=== PATIENT | female | born 1990 | race Caucasian/White ===

== ENCOUNTER → 2018-01-19 13:34 | Outpatient (CLI) | payer OTHER, SELFPAY | PROVIDERS: Family Provider Family Medicine; PCP Family Medicine; Visit Provider Obstetrics & Gynecology | DX: R25.2 Cramp and spasm (principal) | CPT/HCPCS: 87086; 87088 ==

== ENCOUNTER → 2018-02-17 11:11 | Outpatient (CLI) | payer OTHER, SELFPAY ==
[2018-02-17 15:31] LABS: Chlamydia Trachomatis by PCR Negative (Negative); Neisserai gonorrhoeae by PCR Negative (Negative); Probe Check PASS; Sample Adequacy Control PASS; Specimen Processing Control PASS
== END ==
PROVIDERS: Visit Provider Obstetrics & Gynecology
DX: Z11.3 Encounter for screening for infections with a predominantly sexual mode of transmission (principal)
CPT/HCPCS: 87491; 87591

== ENCOUNTER → 2018-02-22 09:40 | Outpatient (CLI) | payer OTHER, SELFPAY ==
[2018-02-22 10:37] LABS: Absolute Lymphocyte Count 1.56 X10^3/ul (0.83-4.51); Absolute Neutrophil Count 3.2 X10^3/uL (2.0-7.7); Basophil# 0.01 X10^3/uL; Basophil% 0.2 % (0-1); Eosinophil# 0.05 X10^3/uL; Hematocrit 39.5 % (37-47); Hemoglobin 13.2 g/dl (12.0-15.0); Lymphocyte # 1.56 X10^3/ul (4.0); Mean Corp Hgb Conc 33.4 g/gl (32-36); Mean Corpuscular Hgb 28.1 pg (27.0-32.0); Mean Corpuscular Volume 84.2 fL (81-99); Mean Platelet Vol. 10.5 fl (6.2-12.0); Monocyte# 0.39 X10^3/uL; Monocyte% 7.5 % (0-10); Neutrophil # 3.19 X10^3/uL (2.7-7.7); Neutrophil % 61.3 % (47-70); Platelet Count 261 K/mm3 (150-450); RBC Distribution Width CV 13.9 % (11.6-14.6); RBC Distribution Width SD 42.7 fl (35.1-43.9); Red Blood Count 4.69 M/mm3 (4.2-5.4); White Blood Count 5.2 K/mm3 (4.4-11.0)
[2018-02-22 10:40] LABS: Color, Urine Yellow (Yellow); Glucose, Dipstick Normal (Normal); Ketone-Dipstick 15 mg/dl (Negative); Leukocyte Esterase-Dipstick 100 /ul (Negative); Nitrite-Dipstick Negative (Negative); Occult Blood-Urine 10 /ul (Negative); Protein-Dipstick Negative (Negative); Specific Gravity, Urine 1.015 (1.002-1.030); Urine Bilirubin Dipstick Negative (Negative); Urine Clarity Clear (Clear); Urine Urobilinogen Normal (Normal); Urine pH 6.5 (5.0 - 8.0)
[2018-02-22 10:44] LABS: POSITIVE COUNT NO; POSITIVE DIFFERENTIAL NO; POSITIVE MORPHOLOGY NO
[2018-02-22 10:54] LABS: COTININE Drug Screen Negative (<200 ng/mL)
[2018-02-22 11:01] LABS: Thyroid Stim Hormone (TSH) 1.25 uIU/mL (0.358-3.74)
[2018-02-22 11:12] LABS: Amphetamine Urine VISTA NEGATIVE (<1000 ng/mL); Barbiturate Urine VISTA NEGATIVE (< 200 ng/mL); Benzodiazepine Urine VISTA NEGATIVE (< 200 ng/mL); Cocaine Urine VISTA NEGATIVE (< 300 ng/mL); Ecstacy Urine VISTA NEGATIVE (< 500 ng/mL); Methadone Urine VISTA NEGATIVE (< 300 ng/mL); PCP Urine VISTA NEGATIVE (< 25 ng/mL); THC Urine VISTA NEGATIVE (< 50 ng/mL); Vista UDS pH Range 7
[2018-02-22 11:38] LABS: HIV - WCH Non-Reactive (Nonreactive)
[2018-02-23 10:06] LABS: HEPATITIS B SURFACE AG Negative (Negative); Hep C Antibodies <0.1 s/co ratio (0.0-0.9)
[2018-02-24 01:05] LABS: Prenatal RPR NONREACTIVE (NONREACTIVE)
== END ==
PROVIDERS: Visit Provider Obstetrics & Gynecology
DX: Z34.81 Encounter for supervision of other normal pregnancy, first trimester (principal)
CPT/HCPCS: 36415; 80307; 81002; 84443; 85025; 86703; 86762; 86803; 87340

== ENCOUNTER → 2018-07-14 10:17 | Outpatient (CLI) | payer OTHER, SELFPAY ==
[2018-07-14 13:44] LABS: Hematocrit 32.5 % (37-47); Hemoglobin 10.7 g/dl (12.0-15.0); Mean Corp Hgb Conc 32.9 g/gl (32-36); Mean Corpuscular Hgb 28.7 pg (27.0-32.0); Mean Corpuscular Volume 87.1 fL (81-99); Mean Platelet Vol. 10.7 fl (6.2-12.0); Platelet Count 243 K/mm3 (150-450); RBC Distribution Width CV 13.8 % (11.6-14.6); Red Blood Count 3.73 M/mm3 (4.2-5.4); White Blood Count 8.2 K/mm3 (4.4-11.0)
[2018-07-14 13:45] LABS: Scan Indicated on CBC? Y/N NO
[2018-07-14 14:00] LABS: Glucose Challenge Gest 1H 50g 176 mg/dL (70-140)
== END ==
PROVIDERS: Visit Provider Obstetrics & Gynecology
DX: Z34.83 Encounter for supervision of other normal pregnancy, third trimester (principal)
CPT/HCPCS: 36415; 82950; 85027

== ENCOUNTER → 2018-07-24 06:45 | Outpatient (CLI) | payer OTHER, SELFPAY ==
[2018-07-24 07:38] LABS: Glucose GTT-Gestation. Fasting 82 mg/dL (<105)
[2018-07-24 08:39] LABS: Glucose GTT-Gestational 1 Hr 182 mg/dL (<190)
[2018-07-24 09:52] LABS: Glucose GTT-Gestational 2 Hr 167 mg/dL (<165)
[2018-07-24 11:09] LABS: Glucose GTT-Gestational 3 Hr 72 L (<145)
== END ==
PROVIDERS: Family Provider Family Medicine; PCP Family Medicine; Referring Provider Obstetrics & Gynecology; Visit Provider Obstetrics & Gynecology
DX: O24.912 Unspecified diabetes mellitus in pregnancy, second trimester (principal); Z3A.00 Weeks of gestation of pregnancy not specified
CPT/HCPCS: 36415; 82951; 82952

== ENCOUNTER → 2018-09-08 15:03 | Outpatient (CLI) | payer OTHER, SELFPAY | PROVIDERS: Visit Provider Obstetrics & Gynecology | DX: Z36.85 Encounter for antenatal screening for Streptococcus B (principal) | CPT/HCPCS: 87081 ==

== ENCOUNTER 2018-09-17 10:35 | Outpatient (CLI) | payer OTHER, SELFPAY ==
[2018-09-17 10:56] VITALS: BMI 38.8
--- NOTE | 2018-09-19 08:39 | OB.TRI.NOTE ---
History of Present Illness Date of Service: 09/17/18 Was patient seen by the physician?: No Reason For Visit: Decreased movement. Date of Service: 09/17/18 Final RYAN: 10/09/18 Final RYAN Source: US <20 weeks Gestational age: 36 Weeks and 6 Days Allergies No Known Allergies Allergy (Verified 11/01/17 08:10) NST - FHR Rate Baby A Baseline: 130-140 with avg variability accels to 160s. no decels. Variability:: Moderate Accelerations:: 15 x 15 Decelerations:: None NST Reactive:: Yes, Appropriate for gestational age FHR Category:: Category I Uterine Activity:: UCs q 2-8 min with invervals of irritability Impression/Plan 36 6/7 wk EGA with Decreased movement Reactive NST Home. Keep next appt as scheduled in office.
== END 2018-09-17 11:20 | disposition home or self-care (01) ==
LOC: WPOUT 10:53 → WP 09-18 12:57
PROVIDERS: Visit Provider Obstetrics & Gynecology
DX: O36.8130 Decreased fetal movements, third trimester, not applicable or unspecified (principal); Z3A.36 36 weeks gestation of pregnancy
CPT/HCPCS: 59025; 59050; 99218; G0378

== ENCOUNTER 2018-09-22 09:15 | Outpatient (RCR) | payer OTHER, SELFPAY ==
--- NOTE | 2018-07-21 11:43 | MASS.EVAL ---
Massage Therapy Evaluation: Initial Evaluation Date: 07/14/2018 SUBJECTIVE: Cassandra is a 28 year old female who was referred to the [facility] facility for a massotherapy evaluation by Dr. Ricardo with the diagnosis of back pain. Cassandra presents today with the symptoms of tension and pain in her mid-low back. She also reports she is 27 weeks . She reports having the increased low back symptoms for a few weeks and that he feels some improvement with stretching activity modification. OBJECTIVE: Upon observation Cassandra has poor posture in sitting and standing. After examination and palpation I found her to have very high muscle tension with tenderness and myofascial restrictions in her sub occipitals, levator scapulae, trapezius, rhomboids, scalenes, and thoracic paraspinals. Her QL?s, hips including glute medius and minimus, hamstrings all were very tight with fascial restrictions, tender points and trigger points. The first treatment consisted of a one hour massage to her full body with myofascial release, muscle stripping, trigger point compression techniques, and cervical manual traction. ASSESSMENT: I feel that Cassandra is a good candidate for massotherapy at this time. She had a favorable response to the first treatment with reduction in her muscle aches, pain and tension. She also had improvement in her cervical flexibility and low back flexibility. PLAN: The plan of care was reviewed with the patient. The patient is to be seen on as needed basis for a total of ten sessions with the recommendation of once every two weeks for a one hour treatment. Tonia Campa LMT
--- NOTE | 2018-10-10 13:37 | MASS.DISCH ---
Massage Therapy Discharge Summary: Discharge Date: 10/10/2018 Cassandra was seen for a massotherapy evaluation on 07/14/2018 with the diagnosis of back pain with . She was treated with four sessions of massage therapy consisting of moderate pressure soft tissue techniques, myofascial release and trigger point compression to her cervical, thoracic, lower back, upper extremities and hips. Cassandra responded well to the therapy by reporting decreased tension and pain throughout her neck, shoulders, lower back and hips. Her goals for therapy were met as she reported massage helped her greatly with her . At this time this patient is being discharged from our care at [facility] facility.
== END 2018-09-22 19:00 | disposition home or self-care (01) ==
LOC: MASS 09:15
PROVIDERS: Family Provider Family Medicine; PCP Family Medicine; Visit Provider Obstetrics & Gynecology
DX: M54.5 Low back pain (principal)
CPT/HCPCS: 97124

== ENCOUNTER 2018-10-09 11:50 | Outpatient (CLI) | payer OTHER, SELFPAY ==
[2018-10-09 12:45] VITALS: BMI 39.4
--- NOTE | 2018-10-10 20:43 | OB.TRI.NOTE ---
History of Present Illness Date of Service: 10/09/18 Was patient seen by the physician?: Yes Reason For Visit: FALL Date of Service: 10/09/18 Final RYAN: 10/09/18 Final RYAN Source: US <20 weeks Gestational age: 40 Weeks and 0 Days History of Present Illness: 40-week intrauterine who fell at home. She notes that she fell on her buttocks but did not hit her abdomen. Denies any contractions but some are noted on the monitor that are mild. Maternal blood type is Rh+. Allergies No Known Allergies Allergy (Verified 11/01/17 08:10) NST - FHR Rate Baby A NST Reactive:: Yes FHR Category:: Category I Impression/Plan 40-week intrauterine status post fall at home. Minor fall. Monitored for 4 hours and no decelerations noted no bleeding. Reactive nonstress test. Released to home with routine instructions. To use Tylenol as needed for any musculoskeletal discomfort. Return if contractions increase in frequency or intensity or with decreased movement or vaginal bleeding.
--- OUTSIDE RECORDS SUMMARY | 2019-01-11 02:07 | XMS RPT_ITS ---
:1990 Author Organization [place] Support Name Relationship Address Phone [facility] Unavailable [address] + [place] [address] DENISE COLLINSER Unavailable [address] + [address] Unavailable [address] + [place] [address] DENISE COLLINSER Unavailable [address] + [address] Unavailable [address] + [place] [address] DENISE COLLINSER Unavailable [address] + [address] Unavailable [address] + [place] [address] KARINA ERIC Unavailable [address] + [address] Unavailable [address] + [place] [address] KARINA ERIC Unavailable [address] + [address] Unavailable [address] + [place] [address] DENISE COLLINSER Unavailable [address] + [address] Unavailable [address] + [place] [address] KARINA ERIC Unavailable [address] + [address] Unavailable [address] + [place] [address] KARINA ERIC Unavailable [address] + [address] Unavailable [address] + [place] [address] DENISE COLLINSER Unavailable [address] + [address] Unavailable [address] + [place] [address] DENISE COLLINSER Unavailable [address] + [address] Unavailable [address] + [place] [address] DENISE COLLINSER Unavailable [address] + [address] Unavailable [address] + [place] [address] DENISE COLLINSER Unavailable [address] + [address] Unavailable [address] + [place] [address] DENISE COLLINSER Unavailable [address] + [place] [address] Care Team Providers Name Role Phone Rm Baxter Attending Unavailable Rm Baxter Referring Unavailable Primay Care Physicia, No Primary Care Unavailable Seals, Néstor Admitting Unavailable Seals, Néstor Attending Unavailable Seals, Néstor Referring Unavailable Primay Care Physicia, No Primary Care Unavailable Seals, Néstor Attending Unavailable Seals, Néstor Attending Unavailable Seals, Néstor Referring Unavailable Waldron, Michael Primary Care Unavailable Seals, Néstor Attending Unavailable Benekos, Nina Attending Unavailable Seals, Néstor Attending Unavailable Waldron, Michael Primary Care Unavailable Seals, Néstor Attending Unavailable Seals, Néstor Attending Unavailable Waldron, Michael Primary Care Unavailable Benekos, Nina Attending Unavailable Seals, Néstor Attending Unavailable Waldron, Michael Primary Care Unavailable Seals, Néstor Referring Unavailable ASSESSMENT, HEALTH RISK Attending Unavailable ASSESSMENT, HEALTH RISK Referring Unavailable Waldron, Michael Primary Care Unavailable Waldron, Michael Primary Care Unavailable Referred, Self Attending Unavailable PROBLEMS PROBLEMS DATE TYPE CONDITION / CODE ATTENDING STATUS SOURCE 10/18/2018 Unknown M54.5 - Low back SealNéstor bhakta pain / Community M54.5(ICD-10) Hospital Repository 09/08/2018 Unknown Z36.85 - Encounter SealsNéstor for Community screening for Hospital Streptococcus B / Repository Z36.85(ICD-10) 07/14/2018 Unknown Z34.83 - Encounter Nina Ferrari Active [place] for supervision of Community other normal Hospital , third Repository trimester / Z34.83(ICD-10) 02/22/2018 Unknown Z34.81 - Encounter Néstor Ricardo Active [place] for supervision of Community other normal Hospital , first Repository trimester / Z34.81(ICD-10) 02/17/2018 Unknown Z11.3 - Encounter Néstor Ricardo Active [place] for screening for Community infections with a Hospital predominantly Repository sexual mode of transmission / Z11.3(ICD-10) PROCEDURES PROCEDURES No Procedure Records FoundRESULTS RESULTS DISCHARGE INSTRUCTION Observed: 10/19/2018 Status: F Source: [place] 7:19 PM [facility] REPOSITORY [facility] Medical Records Department [address] [place] [address] Instructions for Home/Discharge Instructions 10/19/18 1918 MR#: [id number] Acct: [id number] Name: CASSANDRA COLLINS Rep #: [id number] : 1990 28 From: Rm Baxter MD PCP: Care Physician, No Primary Status: ADM IN Discharge Diet: No Restrictions Discharge Activity: May Shower, May Take a Tub Bath May resume sexual activity in: 4-6 weeks Additional Activity Instructions:: Nothing in the vagina for 4-6 weeks. You may return to work/school in 6 weeks. Call your doctor if you observe: Fever of 101 or Higher, Inability to urinate, Inability to have a bowel movement, Using more than one pad per hour Additional Instructions: If you experience any of the following, contact your healthcare provider. * Bleeding that soaks a pad every hour for 2 hours * Unrelieved incision or abdominal pain * Swelling, redness, discharge or bleeding from your incision or episiotomy site * Your incision begins to separate * Problems urinating (including inability to urinate or burning while urinating). * Visual changes * Severe headache * Flu-like symptoms * Pain or redness in one of both of your breasts * Pain, warmth, tenderness or swelling in your legs, especially the calf area * Frequent nausea and vomiting * Symptoms of depression or anxiety If you experience any of the following, call 911 or go to the nearest Emergency Room. * Chest pain * Problems breathing * Seizure activity * Partial or complete paralysis of a body part, slurred speech, weakness or drooping of the face, or a sudden inability to walk or hold your balance Allergies/Adverse Reactions: Allergies No Known Allergies Allergy (Verified 11/01/17 08:10) Medications to take at Discharge No122/Iron/Folic Acid [ Multi Tablet] 1 each PO DAILY 11/01/17 Pantoprazole Sodium [Protonix] 40 mg PO DAILY 09/17/18 Please Follow Up With: Rm Baxter MD - [phone] When: Call to make an appointment with your doctor in 6 weeks. Primary Care Physician: Care Physician,No Primary [Primary Care Provider] - Test Results: Test results from this visit will be discussed in further detail at your follow-up appointment, if applicable. 10/19/181918 <Electronically signed by Rm Baxter MD> Date Rm Baxter MD CC: No Primary Care Physician Signed OPERATIVE REPORT Observed: 10/19/2018 Status: F Source: [place] 7:18 PM [facility] Medical Records Department [address] [place] [address] Operative Report 10/19/181914 MR#: [id number] Acct: [id number] Name: CASSANDRA COLLINS Rep #: [id number] : 1990 From: Rm Baxter MD PCP: Care Physician, No Primary Status: ADM IN Location: [place] [address] Vaginal Delivery Maternal Presentation: Medically Indicated Induction Method of Induction: Pitocin, Amniotomy Medical Reason for Induction: Post term Amniotic Membrane Rupture Type: Spontaneous Amniotic Fluid Description: Lightly stained meconium Final RYAN: 10/09/18 Final RYAN Source: US <20 weeks Gestational age: 41 Weeks and 3 Days doctor who attended delivery (if requested by OB): Hien Loya Date of Procedure: 10/19/18 Pre-Operative Diagnosis: IUP, Postdatism Post-Operative Diagnosis: IUP, Postdatism Surgery/ Procedure Performed: Spontaneous Vaginal Delivery, Vacuum Assisted Vaginal Delivery Type of Anesthesia: Epidural Description of Procedure: Spontaneous vaginal delivery of a viable female infant with Apgars of 8/9 from an occiput anterior presentation with lightly stained meconium amniotic fluid and normal three-vessel placenta. First-degree midline episiotomy extended to a second- degree midline laceration repaired in layers with 3-0 repeat suture under epidural. Sponge counts okay. Kiwi vacuum used x3 gentle pulls from low outlet to expedite delivery of the head after nearly 3 hours of pushing and increasing maternal fatigue. Delivery physician: Rm Baxter MD. Presentation: Vertex Placental Delivery Description: Spontaneous Placenta Disposition: [facility] Cord Vessel Description: 3 Vessels Cord Gases drawn per routine: ABG Cord Entanglement: None Estimated Blood Loss: 250 cc A gender: Female (1 minute): 8 (5 minute): 9 Episiotomy Description: Midline, 1st degree Laceration: Midline, Perineal Extension/lac, 2nd degree Medications given after delivery: IV Pitocin, IM Methergin Complications: None 10/19/181917 <Electronically signed by Rm Baxter MD> Date Rm Baxter MD CC: No Primary Care Physician; Néstor Ricardo MD; Rm Baxter MD Signed CBC-COMPLETE BLOOD CNT Collected: 10/19/2018 Status: F Source: [place] NO DIFF 7:40 AM [facility] REPOSITORY TYPE CODE TESTS RESULT OUT OF RANGE REFERENCE UNITS LAB L100.1000 4.4-11.0 K/mm3 Normal WBC 9.2 LAB L100.1200 4.2-5.4 M/mm3 Low RBC 4.05 LAB L100.1300 12.0-15.0 g/dl Low HGB 10.5 LAB L100.1400 37-47 % Low HCT 32.6 LAB L100.1500 81-99 fL Low MCV 80.5 LAB L100.1600 27.0-32.0 pg Low MCH 25.9 LAB L100.1700 32-36 g/gl Normal MCHC 32.2 LAB L100.1810 11.6-14.6 % High RDW CV 15.1 LAB L100.1820 35.1-43.9 fl High RDW SD 44.4 LAB L100.1900 150-450 K/mm3 Normal PLT 262 LAB L100.2000 6.2-12.0 fl Normal MPV 10.7 Performed By: #### L100.0500 #### [facility] [address] [place], [address] TYPE AND SCREEN Collected: 10/19/2018 Status: F Source: [place] 7:40 AM [facility] REPOSITORY Order Comment: Reason for Type AND Screen/Red Cells: ROUTINE TYPE CODE TESTS RESULT OUT OF RANGE REFERENCE UNITS LAB B10.0800 A Normal BLOOD TYPE GEL POSITIVE LAB B100.4000 Normal Antibody NEGATIVE Screen Performed By: #### B101.7450 #### [facility] [address] [facility] [place], [address] DISCHARGE SUMMARY Observed: 10/13/2018 Status: F Source: [place] 3:43 PM [facility] REPOSITORY [facility] Medical Records Department [address] [place] [address] Discharge Summary 10/10/18 1337 MR#: [id number] Acct: [id number] Name: CASSANDRA COLLINS Rep #: [id number] : 1990 28 From: Tonia Campa PCP: Liam Waldron MD Status: REG RCR Y Location: [facility] Massage Therapy Discharge Summary: Discharge Date: 10/10/2018 Cassandra was seen for a massotherapy evaluation on 07/14/2018 with the diagnosis of back pain with . She was treated with four sessions of massage therapy consisting of moderate pressure soft tissue techniques, myofascial release and trigger point compression to her cervical, thoracic, lower back, upper extremities and hips. Cassandra responded well to the therapy by reporting decreased tension and pain throughout her neck, shoulders, lower back and hips. Her goals for therapy were met as she reported massage helped her greatly with her . At this time this patient is being discharged from our care at [facility] facility. 10/13/18 1543 <Electronically signed by Tonia Campa > Date Tonia Campa Cosigner Signature (if applicable): Date CC: Tonia Campa; Liam Waldron MD Signed Observed: 09/08/2018 Status: F Source: [place] CULTURE, GROUP B 8:45 AM [facility] STREPTOCOCCUS REPOSITORY Comments: VAGINAL/RECTAL KISHAN Culture Group B Beta Streptococcus is not isolated. Performed By: #### M100.1800 #### [facility] [address] [facility] [place], [address] GESTATIONAL GTT 3HR Collected: 07/24/2018 Status: F Source: [place] 100G 6:52 AM [facility] REPOSITORY Order Comment: Is Patient Fasting? Y TYPE CODE TESTS RESULT OUT OF RANGE REFERENCE UNITS LAB L501.0650 <105 mg/dL Normal GLU 82 GTT-FASTING Result Comment: GLUCOSE TOLERANCE TEST FOR Reference Interval GESTATIONAL DIABETES Fasting <105 mg/dL 1 hour <190 mg/dl 2 hour <165 mg/dl 3 hour <145 mg/dl LAB L501.0660 <190 mg/dL Normal GLU GTT- 1HR 182 LAB L501.0670 <165 mg/dL High GLU GTT- 2HR 167 LAB L501.0680 <145 L Normal GLU GTT- 3HR 72 Performed By: #### L500.4710 #### [facility] [address] [place], [place], [address] MASSAGE THERAPY Observed: 07/21/2018 Status: F Source: [place] EVALUATION 11:51 AM [facility] REPOSITORY [facility] [address] [place] [address] Fax REHABILITATION SERVICES INITIAL EVALUATION MR#: [id number] Acct: [id number] Name: CASSANDRA COLLINS Rep #: [id number] : 1990 28 From: Tonia Campa Referring Dr.: Néstor Ricardo MD Status: REG RCR Insurance: [facility] SELF PAY INSURANCE Massage Therapy Evaluation: Initial Evaluation Date: 07/14/2018 SUBJECTIVE: Cassandra is a 28 year old female who was referred to the [facility] facility for a massotherapy evaluation by Dr. Ricardo with the diagnosis of back pain. Cassandra presents today with the symptoms of tension and pain in her mid-low back. She also reports she is 27 weeks . She reports having the increased low back symptoms for a few weeks and that he feels some improvement with stretching activity modification. OBJECTIVE: Upon observation Cassandra has poor posture in sitting and standing. After examination and palpation I found her to have very high muscle tension with tenderness and myofascial restrictions in her sub occipitals, levator scapulae, trapezius, rhomboids, scalenes, and thoracic paraspinals. Her QL s, hips including glute medius and minimus, hamstrings all were very tight with fascial restrictions, tender points and trigger points. The first treatment consisted of a one hour massage to her full body with myofascial release, muscle stripping, trigger point compression techniques, and cervical manual traction. ASSESSMENT: I feel that Cassandra is a good candidate for massotherapy at this time. She had a favorable response to the first treatment with reduction in her muscle aches, pain and tension. She also had improvement in her cervical flexibility and low back flexibility. PLAN: The plan of care was reviewed with the patient. The patient is to be seen on as needed basis for a total of ten sessions with the recommendation of once every two weeks for a one hour treatment. Tonia Campa LMT <Electronically signed by Tonia Campa > 07/21/18 1151 CC: Liam Waldron MD; Néstor Ricardo MD REEMA Signed For Medicare only, by signing this I certify the plan of care. Physicians Signature Date CBC-COMPLETE BLOOD CNT Collected: 07/14/2018 Status: F Source: [place] NO DIFF 10:15 AM [facility] REPOSITORY TYPE CODE TESTS RESULT OUT OF RANGE REFERENCE UNITS LAB L100.1000 4.4-11.0 K/mm3 Normal WBC 8.2 LAB L100.1200 4.2-5.4 M/mm3 Low RBC 3.73 LAB L100.1300 12.0-15.0 g/dl Low HGB 10.7 LAB L100.1400 37-47 % Low HCT 32.5 LAB L100.1500 81-99 fL Normal MCV 87.1 LAB L100.1600 27.0-32.0 pg Normal MCH 28.7 LAB L100.1700 32-36 g/gl Normal MCHC 32.9 LAB L100.1810 11.6-14.6 % Normal RDW CV 13.8 LAB L100.1820 35.1-43.9 fl High RDW SD 44.0 LAB L100.1900 150-450 K/mm3 Normal PLT 243 LAB L100.2000 6.2-12.0 fl Normal MPV 10.7 Performed By: #### L100.0500 #### [facility] [address] [place], [address] GLUCOSE CHALLENGE GEST Collected: 07/14/2018 Status: F Source: [place] 1H 50G 10:15 AM [facility] REPOSITORY TYPE CODE TESTS RESULT OUT OF RANGE REFERENCE UNITS LAB L501.0250 70-140 mg/dL High GLU GEST 176 50g 1H Performed By: #### L501.0250 #### [facility] [address] [place], [address] CBC, EMPLOYEE Collected: 04/12/2018 Status: F Source: [place] 6:32 AM [facility] REPOSITORY TYPE CODE TESTS RESULT OUT OF RANGE REFERENCE UNITS LAB L100.1000 4.4-11.0 K/mm3 Normal WBC 6.3 LAB L100.1200 4.2-5.4 M/mm3 Normal RBC 4.40 LAB L100.1300 12.0-15.0 g/dl Normal HGB 12.7 LAB L100.1400 37-47 % Low HCT 36.5 LAB L100.1500 81-99 fL Normal MCV 83.0 LAB L100.1600 27.0-32.0 pg Normal MCH 28.9 LAB L100.1700 32-36 g/gl Normal MCHC 34.8 LAB L100.1810 11.6-14.6 % Normal RDW CV 14.1 LAB L100.1820 35.1-43.9 fl Normal RDW SD 42.9 LAB L100.1900 150-450 K/mm3 Normal PLT 248 LAB L100.2000 6.2-12.0 fl Normal MPV 10.5 LAB L100.2110 47-70 % Normal NEUT% 66.7 LAB L100.2210 19-41 % Normal LY% 22.6 LAB L100.2310 0-10 % Normal MONO% 8.8 LAB L100.2410 0-5 % Normal EO% 1.7 LAB L100.2510 0-1 % Normal BASO% 0.0 LAB L100.2620 2.0-7.7 X10 3/uL Normal Absolute Neut 4.2 LAB L100.2720 0.83-4.51 X10 3/ul Normal Absolute Lymph 1.43 Performed By: #### L100.0200 #### [facility] [address] [place] [address]. [place], [address] URINALYSIS, EMPLOYEE Collected: 04/12/2018 Status: F Source: [place] 6:32 AM [facility] REPOSITORY TYPE CODE TESTS RESULT OUT OF RANGE REFERENCE UNITS LAB L400.3000 Yellow COLOR Normal Yellow LAB L400.3050 Clear Normal CLARITY Sl. Cloudy LAB L400.3200 Normal mg/dl Normal GLUCOSE, UR Normal LAB L400.3300 Negative mg/dL Normal BILIRUBIN URINE Negative LAB L400.3400 Negative mg/dl Normal KETONE UR Negative LAB L400.3465 1.002-1.030 Normal SP.GR. DIPSTX 1.015 LAB L400.3550 5.0 - 8.0 pH UR Normal 6.5 LAB L400.3600 Negative mg/dl PROT Normal DIPSTX Negative LAB L400.3700 Normal mg/dl Normal UROBILI Normal LAB L400.3750 Negative Normal NITRITE UR Negative LAB L400.3780 Negative /ul Normal OCCULT BLOOD-UR Negative LAB L400.3800 Negative /ul High LEUK ESTERASE 500 Performed By: #### L400.0100 #### [facility] [address] [place], [address] NICOTINE URINE DRUG Collected: 04/12/2018 Status: F Source: [place] SCREEN 6:32 AM [facility] REPOSITORY TYPE CODE TESTS RESULT OUT OF RANGE REFERENCE UNITS LAB L505.6250 TO BE Normal CONFIRMED Result Comment: CONFIRMATORY TESTING FOR ALL POSITIVE URINE DRUG SCREEN RESULTS WILL ONLY BE SENT OUT UPON PHYSICIAN ORDER. The results of Urine Drug Screen methods provide only preliminary analytical test results. A more specific alternate chemical method must be used in order to obtain a confirmed analytical result. Gas chromatography/mass spectrometery (GC/MS) is the preferred confirmatory method. Clinical consideration and professional judgement should be applied to any drug of abuse test result, particularly when preliminary positive results are used. LAB L505.6270 <200 ng/mL Normal COT DRG Negative SCREEN Result Comment: Cotinine is the first-stage metabolite of Nicotine. Performed By: #### L505.6240 #### [facility] [address] [place], [address] EMPLOYEE PROFILE Collected: 04/12/2018 Status: F Source: [place] 6:32 AM [facility] REPOSITORY TYPE CODE TESTS RESULT OUT OF RANGE REFERENCE UNITS LAB L501.0100 74-106 mg/dL Normal GLU 84 Result Comment: Please note revised GLUCOSE reference range effective 2017. LAB L501.1000 7-18 mg/dL Normal BUN 9 LAB L501.1100 0.55-1.02 mg/dL Low CREAT,SERUM 0.48 Result Comment: The validity of the calculated GFR AND GFRAA in patients over 70 years has not been determined. Clinical correlation is essential. LAB L501.1110 >60 mL/min Normal EST GFR 165 Result Comment: Non- GFR Calc LAB L501.1115 >60 mL/min Normal EST GFR - AA 200 Result Comment: GFR Calc LAB L501.1300 10-20 RATIO Normal BUN/CRE 18.7 LAB L501.1400 2.6-6.0 mg/dL Normal URIC 2.8 Result Comment: The drugs N-Acetylcysteine and Metamizole may falsely depress this assay. LAB L501.1500 6.4-8.2 g/dL Normal T PROT 7.1 LAB L501.1800 3.2-5.0 g/dL Normal ALB 3.2 LAB L501.1950 2.2-4.2 g/dL Normal GLOB 3.9 LAB L501.2000 0.9-2.4 RATIO Low A/G 0.8 LAB L501.2200 8.5-10.1 mg/dL Normal CA 8.6 LAB L501.2300 2.5-4.9 mg/dL Normal PHOS 4.0 LAB L501.4100 15-37 U/L Normal AST 15 LAB L501.4305 45-117 U/L Normal ALK P 50 LAB L501.4405 13-56 U/L Normal ALT 31 LAB L501.4600 0.20-1.00 mg/dL Normal T BILI 0.40 LAB L501.4700 0.00-0.30 mg/dL Normal D BILI 0.08 LAB L501.4900 200 mg/dL Normal CHOL 165 Result Comment: <200 mg/dL Desirable 200-240 mg/dL Borderline >240 mg/dL High Risk LAB L501.5000 mg/dL Normal TRIG 67 Result Comment: The drugs N-Acetylcysteine and Metamizole may falsely depress this assay. Serum Triglycerides Reference Interval Normal <150 mg/dL Borderline high 150 - 199 mg/dL High 200 - 499 mg/dL Very High > or = 500 mg/dL LAB L501.5300 136-145 mmol/L Normal NA 141 LAB L501.5600 3.5-5.1 mmol/L Normal K 3.6 LAB L501.5900 98-107 mmol/L High CL 108 LAB L501.6100 21.0-32.0 mmol/L Normal CO2 21.0 LAB L501.6200 5-15 Normal GAP 12 LAB L501.6400 mg/dL Normal HDL 57 Result Comment: The drugs N-Acetylcysteine and Metamizole may falsely depress this assay. Reference Range HDL <40 mg/dL Low HDL Cholesterol HDL >or= 60 mg/dL High HDL Cholesterol LAB L501.6475 Normal CHOL:HDL 2.90 LAB L501.6500 0-130 mg/dL Normal LDL 95 LAB L501.6600 5-40 mg/dL Normal VLDL 13 LAB L504.2610 84-246 U/L Normal LDH 196 Performed By: #### L500.2900 #### [facility] [address] [place], [place], [address] URINE DRUG SCREEN Collected: 02/22/2018 Status: F Source: [place] WEAVER) 9:42 AM [facility] REPOSITORY Order Comment: List of Drugs Taken or Suspected? UNK TYPE CODE TESTS RESULT OUT OF RANGE REFERENCE UNITS LAB L505.0075 TO BE Normal CONFIRMED Result Comment: CONFIRMATORY TESTING FOR ALL POSITIVE URINE DRUG SCREEN RESULTS WILL ONLY BE SENT OUT UPON PHYSICIAN ORDER. VISTA Urine Drug Screen methods provide only preliminary analytical test results. A more specific alternate chemical method must be used in order to obtain a confirmed analytical result. Gas chromatography/mass spectrometery (GC/MS) is the preferred confirmatory method. Clinical consideration and professional judgement should be applied to any drug of abuse test result, particularly when preliminary positive results are used. URINE TCA TESTING MUST BE ORDERED SEPARATELY. USE TEST MNEMONIC: [facility] LAB L505.5005 VISTA UDS PH 7 Normal LAB L505.5015 <1000 ng/mL AMPHETAMINES Normal NEGATIVE LAB L505.5025 < 200 ng/mL BARBITIURATES Normal NEGATIVE LAB L505.5035 < 200 ng/mL BENZODIAZIPINE Normal NEGATIVE LAB L505.5045 < 300 ng/mL COCAINE Normal NEGATIVE LAB L505.5055 < 500 ng/mL ECSTACY Normal NEGATIVE LAB L505.5065 < 300 ng/mL METHADONE Normal NEGATIVE LAB L505.5075 < 300 ng/mL OPIATES Normal NEGATIVE LAB L505.5085 < 25 ng/mL PCP Normal NEGATIVE LAB L505.5095 < 50 ng/mL THC Normal NEGATIVE Performed By: #### L505.5000, L505.6240 #### [facility] [address] [place], [address] NICOTINE URINE DRUG Collected: 02/22/2018 Status: F Source: [place] SCREEN 9:42 AM [facility] REPOSITORY Order Comment: List of Drugs Taken or Suspected? UNK TYPE CODE TESTS RESULT OUT OF RANGE REFERENCE UNITS LAB L505.6250 TO BE Normal CONFIRMED Result Comment: CONFIRMATORY TESTING FOR ALL POSITIVE URINE DRUG SCREEN RESULTS WILL ONLY BE SENT OUT UPON PHYSICIAN ORDER. The results of Urine Drug Screen methods provide only preliminary analytical test results. A more specific alternate chemical method must be used in order to obtain a confirmed analytical result. Gas chromatography/mass spectrometery (GC/MS) is the preferred confirmatory method. Clinical consideration and professional judgement should be applied to any drug of abuse test result, particularly when preliminary positive results are used. LAB L505.6270 <200 ng/mL Normal COT DRG Negative SCREEN Result Comment: Cotinine is the first-stage metabolite of Nicotine. Performed By: #### L505.5000, L505.6240 #### [facility] [address] [facility] [place], [address] URINALYSIS, ROUTINE Collected: 02/22/2018 Status: F Source: [place] (DIPSTICK) 9:42 AM [facility] REPOSITORY Order Comment: How was Urine Obtained? Urine, Random TYPE CODE TESTS RESULT OUT OF RANGE REFERENCE UNITS LAB L400.3000 Yellow COLOR Normal Yellow LAB L400.3050 Clear Normal CLARITY Clear LAB L400.3200 Normal mg/dl Normal GLUCOSE, UR Normal LAB L400.3300 Negative mg/dL Normal BILIRUBIN URINE Negative LAB L400.3400 Negative mg/dl High 15 KETONE UR LAB L400.3465 1.002-1.030 Normal SP.GR. DIPSTX 1.015 LAB L400.3550 5.0 - 8.0 pH UR Normal 6.5 LAB L400.3600 Negative mg/dl PROT Normal DIPSTX Negative LAB L400.3700 Normal mg/dl Normal UROBILI Normal LAB L400.3750 Negative Normal NITRITE UR Negative LAB L400.3780 Negative /ul High 10 OCCULT BLOOD-UR LAB L400.3800 Negative /ul High LEUK ESTERASE 100 Performed By: #### L400.2010 #### [facility] [address] [place], [place], [address] CBC W/DIFF, AUTOMATED Collected: 02/22/2018 Status: F Source: BLACK [place]ICK 9:42 AM [facility] REPOSITORY TYPE CODE TESTS RESULT OUT OF RANGE REFERENCE UNITS LAB L100.1000 4.4-11.0 K/mm3 Normal WBC 5.2 LAB L100.1200 4.2-5.4 M/mm3 Normal RBC 4.69 LAB L100.1300 12.0-15.0 g/dl Normal HGB 13.2 LAB L100.1400 37-47 % Normal HCT 39.5 LAB L100.1500 81-99 fL Normal MCV 84.2 LAB L100.1600 27.0-32.0 pg Normal MCH 28.1 LAB L100.1700 32-36 g/gl Normal MCHC 33.4 LAB L100.1810 11.6-14.6 % Normal RDW CV 13.9 LAB L100.1820 35.1-43.9 fl Normal RDW SD 42.7 LAB L100.1900 150-450 K/mm3 Normal PLT 261 LAB L100.2000 6.2-12.0 fl Normal MPV 10.5 LAB L100.2100 47-70 % Normal NEUT% 61.3 LAB L100.2200 19-41 % Normal LY% 30.0 LAB L100.2300 0-10 % Normal MONO% 7.5 LAB L100.2400 0-5 % Normal EO% 1.0 LAB L100.2500 0-1 % Normal BASO% 0.2 LAB L100.2550 0.0-0.9 % Normal IM GRAN % 0.000 Result Comment: IG% - Immature Granulocytes (promyelocytes, myelocytes and metamyelocytes) > 1% indicates that a LEFT SHIFT is Present. LAB L100.2620 2.0-7.7 X10 3/uL Normal Absolute Neut 3.2 LAB L100.2720 0.83-4.51 X10 3/ul Normal Absolute Lymph 1.56 Performed By: #### L100.0100 #### [facility] [address] [place] [address], [address] THYROID STIM HORMONE Collected: 02/22/2018 Status: F Source: BLACK LICK (TSH) 9:42 AM [facility] REPOSITORY TYPE CODE TESTS RESULT OUT OF RANGE REFERENCE UNITS LAB L501.9520 0.358-3.74 uIU/mL Normal TSH 1.25 Performed By: #### L501.9520 #### [facility] [address] [place], [place], [id number] RUBELLA IGG Collected: 02/22/2018 Status: F Source: BLACK LICK 9:42 AM [facility] REPOSITORY TYPE CODE TESTS RESULT OUT OF RANGE REFERENCE UNITS LAB L509.4000 IU/mL Normal Rubella IgG 104.0 Result Comment: Antibody results Interpretation of Immune Status < 5 IU/ml Presumed Non-immune 5 - < 10 IU/ml Equivocal > or = 10 IU/ml Presumed Immune Performed By: #### L509.4000, L3890.6005 #### [facility] [address] [place], [place], [address] HIV - WCH Collected: 02/22/2018 Status: F Source: TEVIN 9:42 AM [facility] REPOSITORY TYPE CODE TESTS RESULT OUT OF RANGE REFERENCE UNITS LAB L3890.6005 Nonreactive Normal HIV - WCH Non-Reactive Performed By: #### L509.4000, L3890.6005 #### [facility] [place], [place], [address] T AND S-NO Collected: 02/22/2018 Status: F Source: TEVIN CHARGE W/PNP 9:42 AM [facility] REPOSITORY Order Comment: Reason for Type AND Screen/Red Cells: Surgery? N TYPE CODE TESTS RESULT OUT OF RANGE REFERENCE UNITS LAB B10.0800 A Normal BLOOD POSITIVE TYPE GEL LAB B100.4050 Normal Ab SCREEN NEGATIVE GEL Performed By: #### B100.7550 #### [facility] [facility] [place], [place], [address] HEPATITIS B SURFACE Collected: 02/22/2018 Status: F Source: TEVIN AG 9:42 AM [facility] REPOSITORY TYPE CODE TESTS RESULT OUT OF RANGE REFERENCE UNITS LAB L3100.0400 Negative Normal HB Negative SURF AG Result Comment: Performed at: [facility] [id number] Ware Cleaner: Deion Mei PhD, Phone: [phone] Performed By: #### L3100.0390, L3100.0625 #### [facility] (refer to report for specific site) refer to report for address and phone number HEPATITIS C ANTIBODIES Collected: 02/22/2018 Status: F Source: TEVIN 9:42 AM [facility] REPOSITORY TYPE CODE TESTS RESULT OUT OF RANGE REFERENCE UNITS LAB L3100.0650 0.0-0.9 s/co ratio Normal HEP C AB <0.1 Result Comment: Negative: < 0.8 Indeterminate: 0.8 - 0.9 Positive: > 0.9 The CDC recommends that a positive HCV antibody result be followed up with a HCV Nucleic Acid Amplification test (130712). Performed By: #### L3100.0390, L3100.0625 #### [facility] (refer to report for specific site) refer to report for address and phone number RPR Collected: 02/22/2018 Status: F Source: TEVIN 9:42 AM [facility] REPOSITORY TYPE CODE TESTS RESULT OUT OF REFERENCE UNITS RANGE LAB L700.5100 NONREACTIVE Normal RPR NONREACTIVE Performed By: #### L700.5100 #### [facility] [address] [place], [address] CT/NG WCH BY PCR Collected: 02/17/2018 Status: F Source: TEVIN 10:00 AM [facility] REPOSITORY TYPE CODE TESTS RESULT OUT OF RANGE REFERENCE UNITS LAB L8200.2100 Negative Normal Chlam Negative Trac PCR LAB L8200.2200 Negative Normal NG by Negative PCR Performed By: #### L8200.2000 #### [facility] [address] [place], [address] Observed: 01/19/2018 Status: F Source: TEVIN CULTURE, URINE 11:45 AM [facility] REPOSITORY Urine Culture Below infection level. Probable skin contaminants. ORGANISM 1: Gram positive organism [place] Count 1000-10,000 Performed By: #### M100.0650 #### [facility] [address] [place], [address] ALLERGIES ALLERGIES DATE TYPE / CODE NAME / CODE REACTION SEVERITY SOURCE 11/01/2017 Drug No Known Unknown [facility] Allergy/4160 Allergies/F00 Hospital 16692(SNOMED 2679337(RXNOR Repository CT) M) ENCOUNTERS ENCOUNTERS ADMIT/DISCHARGE ACCOUNT ADMITTING ENCOUNTER LOCATION SOURCE NUMBER CLASS 10/19/2018/ [id number] Néstor Ricardo Inpatient [place] 8 4 Encounter [facility] ing:WPRoom: Repository QQ655Sdl: 1 10/09/2018/ [id number] Ambulatory [place] [address] [facility] Hospital ing:WPOUTRoom Repository : OBT02 09/22/2018/ [id number] Ambulatory [place] [address] [facility] Hospital ing:MASS Repository 09/17/2018/ [id number] Ambulatory [place] 8 0 [facility] ing:WPOUTRoom Repository : WP012 09/08/2018 [id number] Ambulatory [place] 1 [facility] ing:LABSPEC Repository 07/24/2018 [id number] Ambulatory [place] Tevin 0 [facility] ing:LAB Repository 07/19/2018 [id number] Ambulatory [place] 2 [facility] ing:LAB.FUTUR Repository E 07/14/2018 [id number] Ambulatory [place] 3 [facility] ing:WOBLAB Repository 04/12/2018 [id number] Ambulatory [place] Tevin [address] [facility] Hospital ing:HW Repository 02/22/2018 [id number] Ambulatory Tevin Tevin [address] [facility] Hospital ing:WOBLAB Repository 02/17/2018 [id number] Ambulatory [place] [address] [facility] Hospital ing:LABSPEC Repository 02/07/2018 [id number] Ambulatory [place] [address] [facility] Hospital ing:MASS Repository 01/19/2018 [id number] Ambulatory [place] Tevin [address] [facility] Hospital ing:WOBLAB Repository PAYERS PAYERS ENCOUNTER GUARANTOR PAYER SUBSCRIBER SOURCE 10/19/2018 CASSANDRA Buckley Primary Insurance:[facility] CASSANDRA Abarca [id number] [facility] YOUNGDOB: [address] 3789-27-[place], [place] [address]Yoy: Number: Repository [id number] (HP) Date:8263-78-57[address] [address]ZDLMMDXHW, [place] [address]ZL: CHECK WEBSITE 10/19/2018 Secondary NOT GIVENUNK [place] Insurance:SELF PAY [facility] Number: Effective Repository Date:2018-10-19 10/09/2018 CASSANDRA Buckley Primary Insurance:[facility] CASSANDRA COLLINS347 [facility] YOUNGDOB: [address] [id number] Hospital , [place] [address]Wyt: Number: Repository [id number] (HP) Date:9692-78-11[address] [address]HUFWSKBPZ, [place] [address]VP: CHECK WEBSITE 10/09/2018 Secondary NOT GIVENUNK Tevin Insurance:SELF PAY [facility] Number: Effective Repository Date:2018-10-09 09/22/2018 CASSANDRA M Primary Insurance:[facility] CASSANDRA Abarca [id number] [facility] YOUNGDOB: [address] [id number] [facility] , [place] [address]Wyq: Number: Repository [id number] (HP) Date:5996-43-62LJ [address] [address]JIBHGMW[place], [place] [address]DF: CHECK WEBSITE 09/22/2018 Secondary NOT GIVENUNK Tevin Insurance:SELF PAY [facility] Number: Effective Repository Date:2018-06-15 09/17/2018 CASSANDRA M Primary Insurance:[facility] CASSANDRA [id number] [facility] YOUNGDOB: [address] [id number] Hospital , [place] [address]Riv: Number: Repository [id number] (HP) Date:6369-48-67GW [address] [address]NKDBOANNN, [place] [address]OO: CHECK WEBSITE 09/17/2018 Secondary NOT GIVENUNK Tevin Insurance:SELF PAY [facility] Number: Effective Repository Date:2018-09-17 09/08/2018 CASSANDRA M Primary Insurance:[facility] CASSANDRA Abarca [id number] [facility] BLUE GRASSDOB: [address] 5756-51-72FGEB[place]le[place], [place] [address]Bfo: Number: Repository [id number] (HP) Date:4359-88-80AC [address] [address]EHZTEB[place]Q, [place] [address]KF: CHECK WEBSITE 09/08/2018 Secondary NOT GIVENUNK Tevin Insurance:SELF PAY [facility] Number: Effective Repository Date:2018-09-08 07/24/2018 CASSANDRA Buckley Primary Insurance:[facility] CASSANDRA Buckley Tevin [id number] CR [facility] BLUE GRASSDOB: [address] [id number] Hospital , [place] [address]Xkv: Number: Repository [id number] () Date:4987-93-42RZ [address] [address]BQSDSQPMG, [place] [address]UI: CHECK WEBSITE 07/24/2018 Secondary NOT GIVENUNK [place] Insurance:SELF PAY [facility] Number: Effective Repository Date:2018-07-18 07/19/2018 CASSANDRA Buckley Primary Insurance:[facility] CASSANDRA Buckley Tevin [id number] [facility] [address] [id number] [facility] , [place] [address]Hcf: Number: Repository [id number] () Date:5515-41-24HK [address] [address]NBTEVIHA, [place] [address]TC: CHECK WEBSITE 07/19/2018 Secondary NOT GIVENUNK Tevin Insurance:SELF PAY [facility] Number: Effective Repository Date:2018-07-19 07/14/2018 CASSANDRA Buckley Primary Insurance:[facility] CASSANDRA Buckley Tevin [id number] [facility] [address] [id number] Hospital , [place] [address]Myt: Number: Repository [id number] () Date:4693-51-88PS [address] [address]AFGNRONRH, [place] [address]NV: CHECK WEBSITE 07/14/2018 Secondary NOT GIVENUNK Tevin Insurance:SELF PAY [facility] Number: Effective Repository Date:2018-07-14 04/12/2018 CASSANDRA Primary NOT GIVENUNK Tevin [id number] CR Insurance:SELF PAY [address] , [place] [address]Klh: Number: Effective Repository Date:2018-04-12 (HP) 02/22/2018 CASSANDRA Primary Insurance:[facility] CASSANDRA Abarca [id number] CR [facility] YOUNGDOB: [address] [id number] Hospital , [place] [address]Gsw: Number: Repository [id number] (HP) Date:0051-47-48IU [address] [address]JPXUIUHZS, [place] [address]NG: CHECK WEBSITE 02/22/2018 Secondary NOT GIVENUNK Tevin Insurance:SELF PAY [facility] Number: Effective Repository Date:2018-02-22 02/17/2018 CASSANDRA Primary Insurance:[facility] CASSANDRA Tevin [id number] [facility] [address]06[address], [place] [address]Vid: Number: Repository [id number] (HP) Date:3693-49-69UQ [address] [address]EBJPADARZ, [place] [address]XY: CHECK WEBSITE 02/17/2018 Secondary NOT GIVENUNK Tevin Insurance:SELF PAY [facility] Number: Effective Repository Date:2018-02-17 02/07/2018 CASSANDRA M Primary NOT GIVENUNK [place] [id number] CR Insurance:SELF PAY [address] , [place] [address]Nsv: Number: Effective Repository Date:2018-01-19 (HP) 01/19/2018 CASSANDRA Primary Insurance:[facility] CASSANDRA Abarca [id number] CR [facility] YOUNGDOB: [address] 8697-54-93XIIB[place]le[place], [place] [address]Lza: Number: Repository [id number] (HP) Date:8785-27-79ZB [address] [address]QLMVMNBYN, [place] [address]PT: CHECK WEBSITE 01/19/2018 Secondary NOT GIVENUNK Tevin Insurance:SELF PAY [facility] Number: Effective Repository Date:2018-01-19
== END 2018-10-09 14:45 | disposition home or self-care (01) ==
LOC: WPOUT 11:56 → WP 11:57
PROVIDERS: Referring Provider Obstetrics & Gynecology; Visit Provider Obstetrics & Gynecology
DX: Z04.3 Encounter for examination and observation following other accident (principal); Z3A.40 40 weeks gestation of pregnancy
CPT/HCPCS: 59025; 59050; 99218; G0378

== ENCOUNTER 2018-10-19 06:58 | Inpatient (IN) | payer OTHER, SELFPAY ==
[2018-10-19 07:03] VITALS: BMI 40.1
[2018-10-19 08:14] LABS: Hematocrit 32.6 % (37-47); Hemoglobin 10.5 g/dl (12.0-15.0); Mean Corp Hgb Conc 32.2 g/gl (32-36); Mean Corpuscular Hgb 25.9 pg (27.0-32.0); Mean Corpuscular Volume 80.5 fL (81-99); Mean Platelet Vol. 10.7 fl (6.2-12.0); Platelet Count 262 K/mm3 (150-450); RBC Distribution Width CV 15.1 % (11.6-14.6); RBC Distribution Width SD 44.4 fl (35.1-43.9); Red Blood Count 4.05 M/mm3 (4.2-5.4); White Blood Count 9.2 K/mm3 (4.4-11.0)
[2018-10-19 08:15] LABS: Scan Indicated on CBC? Y/N NO
[2018-10-19] MEDS: Lactated Ringers 1,000 ML 50 ML IV ×3 (08:21→14:40)
[2018-10-19] MEDS: Oxytocin 30 units/NS 500 ml 30 UNITS/500 ML IV.SOLN IV (08:21)
[2018-10-19] MEDS: Ondansetron 4 MG/2 ML Vial IV (10:24)
[2018-10-19] MEDS: fentaNYL-bupivacaine (epidural) 100 ML BAG EPIDURAL ×2 (11:15→15:42)
[2018-10-19] MEDS: Oxytocin 30 units/NS 500 ml 30 UNITS/500 ML IV.SOLN 334 UNITS IV (19:01)
[2018-10-19] MEDS: Methylergonovine 0.2 MG/ML Ampul IM (19:06)
--- NOTE | 2018-10-19 19:15 | PCM.OB.VAG ---
Vaginal Delivery Maternal Presentation: Medically Indicated Induction Method of Induction: Pitocin, Amniotomy Medical Reason for Induction: Post term Amniotic Membrane Rupture Type: Spontaneous Amniotic Fluid Description: Lightly stained meconium Final RYAN: 10/09/18 Final RYAN Source: US <20 weeks Gestational age: 41 Weeks and 3 Days [place] doctor who attended delivery (if requested by OB): Hien Loya [facility] [place] Date of Procedure: 10/19/18 Pre-Operative Diagnosis: IUP, Postdatism Post-Operative Diagnosis: IUP, Postdatism Surgery/ Procedure Performed: Spontaneous Vaginal Delivery, Vacuum Assisted Vaginal Delivery Type of Anesthesia: Epidural Description of Procedure: Spontaneous vaginal delivery of a viable female infant with Apgars of 8/9 from an occiput anterior presentation with lightly stained meconium amniotic fluid and normal three-vessel placenta. First-degree midline episiotomy extended to a second-degree midline laceration repaired in layers with 3-0 repeat suture under epidural. Sponge counts okay. Kiwi vacuum used x3 gentle pulls from low outlet to expedite delivery of the head after nearly 3 hours of pushing and increasing maternal fatigue. Delivery physician: Rm Baxter MD. Presentation: Vertex Placental Delivery Description: Spontaneous Placenta Disposition: [facility] Cord Vessel Description: 3 Vessels Cord Gases drawn per routine: ABG Cord Entanglement: None Estimated Blood Loss: 250 cc Infant A gender: Female (1 minute): 8 (5 minute): 9 Episiotomy Description: Midline, 1st degree Laceration: Midline, Perineal Extension/lac, 2nd degree Medications given after delivery: IV Pitocin, IM Methergin Complications: None
--- NOTE | 2018-10-19 19:18 | OP.PCM_ITS ---
Vaginal Delivery Maternal Presentation: Medically Indicated Induction Method of Induction: Pitocin, Amniotomy Medical Reason for Induction: Post term Amniotic Membrane Rupture Type: Spontaneous Amniotic Fluid Description: Lightly stained meconium Final RYAN: 10/09/18 Final RYAN Source: US <20 weeks Gestational age: 41 Weeks and 3 Days [place] doctor who attended delivery (if requested by OB): Hien Loya [facility] [place] [place] Date of Procedure: 10/19/18 Pre-Operative Diagnosis: IUP, Postdatism Post-Operative Diagnosis: IUP, Postdatism Surgery/ Procedure Performed: Spontaneous Vaginal Delivery, Vacuum Assisted Vaginal Delivery Type of Anesthesia: Epidural Description of Procedure: Spontaneous vaginal delivery of a viable female infant with Apgars of 8/9 from an occiput anterior presentation with lightly stained meconium amniotic fluid and normal three-vessel placenta. First-degree midline episiotomy extended to a second-degree midline laceration repaired in layers with 3-0 repeat suture under epidural. Sponge counts okay. Kiwi vacuum used x3 gentle pulls from low outlet to expedite delivery of the head after nearly 3 hours of pushing and increasing maternal fatigue. Delivery physician: Rm Baxter MD. Presentation: Vertex Placental Delivery Description: Spontaneous Placenta Disposition: [facility] Cord Vessel Description: 3 Vessels Cord Gases drawn per routine: ABG Cord Entanglement: None Estimated Blood Loss: 250 cc Infant A gender: Female (1 minute): 8 (5 minute): 9 Episiotomy Description: Midline, 1st degree Laceration: Midline, Perineal Extension/lac, 2nd degree Medications given after delivery: IV Pitocin, IM Methergin Complications: None
--- NOTE | 2018-10-19 19:19 | DCINST_ITS ---
Discharge Diet: No Restrictions Discharge Activity: May Shower, May Take a Tub Bath May resume sexual activity in: 4-6 weeks Additional Activity Instructions:: Nothing in the vagina for 4-6 weeks. You may return to work/school in 6 weeks. Call your doctor if you observe: Fever of 101 or Higher, Inability to urinate, Inability to have a bowel movement, Using more than one pad per hour Additional Instructions: If you experience any of the following, contact your healthcare provider. * Bleeding that soaks a pad every hour for 2 hours * Unrelieved incision or abdominal pain * Swelling, redness, discharge or bleeding from your incision or episiotomy site * Your incision begins to separate * Problems urinating (including inability to urinate or burning while urinating). * Visual changes * Severe headache * Flu-like symptoms * Pain or redness in one of both of your breasts * Pain, warmth, tenderness or swelling in your legs, especially the calf area * Frequent nausea and vomiting * Symptoms of depression or anxiety If you experience any of the following, call 911 or go to the nearest Emergency Room. * Chest pain * Problems breathing * Seizure activity * Partial or complete paralysis of a body part, slurred speech, weakness or drooping of the face, or a sudden inability to walk or hold your balance Allergies/Adverse Reactions: Allergies No Known Allergies Allergy (Verified 11/01/17 08:10) Medications to take at Discharge No122/Iron/Folic Acid [ Multi Tablet] 1 each PO DAILY 11/01/17 Pantoprazole Sodium [Protonix] 40 mg PO DAILY 09/17/18 Please Follow Up With: Rm Baxter MD - [phone] When: Call to make an appointment with your doctor in 6 weeks. Primary Care Physician: Care Physician,No Primary [Primary Care Provider] - Test Results: Test results from this visit will be discussed in further detail at your follow- up appointment, if applicable.
[2018-10-19] MEDS: Oxytocin 30 units/NS 500 ml 30 UNITS/500 ML IV.SOLN 167 UNITS IV (19:30)
[2018-10-19] MEDS: Acetaminophen 325 MG Tablet PO (20:01)
[2018-10-19] MEDS: Ibuprofen 600 MG Tablet PO (22:48)
[2018-10-19 22:59] VITALS: BP 71/59; PULSE 106; RESP 16; TEMP 36.9; O2SAT 97
[2018-10-19 23:50] VITALS: BP 124/68; PULSE 107; RESP 20; TEMP 36.9
[2018-10-20 04:15] VITALS: BP 115/60; PULSE 97; RESP 20; TEMP 36.1
[2018-10-20] MEDS: Ibuprofen 600 MG Tablet PO ×3 (04:28→21:11)
[2018-10-20 08:00] VITALS: BP 122/53; PULSE 89; RESP 89; TEMP 36.6
[2018-10-20] MEDS: Senna/Docusate Sodium 1 Tablet PO (08:14)
--- NOTE | 2018-10-20 08:19 | PCM.PN.OB ---
Subjective: Some cramping and soreness. Bleeding light. Objective: Afeb VSS - Physical Exam General: Alert, Oriented x3, Cooperative, No apparent distress Lungs: Clear to auscultation, Normal air movement Cardiovascular: Regular rate, Regular Rhythm Abdomen: Soft, Non Tender, Non-Distended, - - Fundus firm nontender Extremities: No edema Skin: No rashes Neurological: Neuro grossly intact Psych/Mental Status: Normal Affect Comment: Lochia light Vital Signs Temp Pulse Resp BP Pulse Ox 97.0 F L 97 20 H 115/60 97 10/20/18 04:15 10/20/18 04:15 10/20/18 04:15 10/20/18 04:15 10/19/18 22:59 Oxygen Delivery Method Room Air Weight: 256 lb Body Mass Index (BMI) 40.1 Intake and Output for Last 24 Hours 10/18/18 10/19/18 10/20/18 23:59 23:59 23:59 Intake Total 100 / 100 Output Total 100 / 100 800 / 800 Balance 0 / 0 -800 / -800 Laboratory Tests Past 24 Hrs 10/19/18 07:40 Blood Type A POSITIVE Antibody Screen NEGATIVE Medical Necessity - Tobacco Use Smoking Status: Never smoker Assessment/Plan Doing well on PP day#1. Continue routine PP care.
[2018-10-20 12:00] VITALS: BP 130/89; PULSE 104; RESP 16; TEMP 36.6
[2018-10-20 16:00] VITALS: BP 125/62; PULSE 104; RESP 18; TEMP 36.6; O2SAT 97
[2018-10-20 20:59] VITALS: BP 113/77; PULSE 96; RESP 17; TEMP 36.4; O2SAT 100
[2018-10-21 01:50] VITALS: BP 118/58; PULSE 100; RESP 17; TEMP 36.9; O2SAT 98
[2018-10-21 08:30] VITALS: BP 129/84; PULSE 102; RESP 18; TEMP 36.1; O2SAT 98
[2018-10-21] MEDS: Ibuprofen 600 MG Tablet PO (08:41)
--- NOTE | 2018-10-21 10:30 | PCM.PN.OB ---
Subjective: PPD#2 Vaginal delivery Doing well. Breast feeding. Minimal pain. No concerns voiced. - Physical Exam General: Alert, Oriented x3, Cooperative, No apparent distress Neck: Supple Psych/Mental Status: Normal Affect Vital Signs Temp Pulse Resp BP Pulse Ox 97 F L 102 H 18 129/84 H 98 10/21/18 08:30 10/21/18 08:30 10/21/18 08:30 10/21/18 08:30 10/21/18 08:30 Oxygen Delivery Method Room Air Weight: 116.12 kg Body Mass Index (BMI) 40.1 Intake and Output for Last 24 Hours 10/19/18 10/20/18 10/21/18 23:59 23:59 23:59 Intake Total 100 / 100 Output Total 100 / 100 800 / 800 Balance 0 / 0 -800 / -800 Medical Necessity - Tobacco Use Smoking Status: Never smoker Assessment/Plan PPD#2 Stable pp. Dischg home today. RTO in 6 wk for check, prn sooner.
[2018-10-21 12:50] VITALS: BP 113/68; PULSE 96; RESP 18; TEMP 36.5; O2SAT 98
== END 2018-10-21 13:00 | disposition home or self-care (01) | DRG 807 ==
PROVIDERS: Admitting Provider Obstetrics & Gynecology; Referring Provider Obstetrics & Gynecology; Visit Provider Obstetrics & Gynecology
DX: O75.81 Maternal exhaustion complicating labor and delivery (principal); Z37.0 Single live birth; O48.0 Post-term pregnancy; Z3A.41 41 weeks gestation of pregnancy; O77.0 Labor and delivery complicated by meconium in amniotic fluid
CPT/HCPCS: 59025; 59050; 85027; 86850; 86900; 99218; J7120; G0378; J2405

== ENCOUNTER → 2018-12-05 09:21 | Outpatient (CLI) | payer OTHER, SELFPAY ==
[2018-12-05 12:32] LABS: hCG Titer Quant., Serum < 1 mIU/mL (<9 non-preg)
== END ==
PROVIDERS: Visit Provider Obstetrics & Gynecology
DX: Z30.8 Encounter for other contraceptive management (principal)
CPT/HCPCS: 36415; 84144; 84702

== ENCOUNTER → 2018-12-07 14:37 | Outpatient (CLI) | payer OTHER, SELFPAY ==
[2018-12-07 17:55] LABS: Chlamydia Trachomatis by PCR Negative (Negative); Neisserai gonorrhoeae by PCR Negative (Negative); Probe Check PASS; Sample Adequacy Control PASS; Specimen Processing Control PASS
== END ==
PROVIDERS: Visit Provider Obstetrics & Gynecology
DX: Z30.430 Encounter for insertion of intrauterine contraceptive device (principal); Z11.3 Encounter for screening for infections with a predominantly sexual mode of transmission
CPT/HCPCS: 87491; 87591

== ENCOUNTER → 2019-01-04 17:54 | Outpatient (CLI) | payer OTHER, SELFPAY ==
[2019-01-09 11:16] LABS: HPV Reflexed? NOT INDICATED
== END ==
PROVIDERS: Referring Provider Obstetrics & Gynecology; Visit Provider Obstetrics & Gynecology
DX: Z12.4 Encounter for screening for malignant neoplasm of cervix (principal)
CPT/HCPCS: 88175; G0145

== ENCOUNTER → 2020-01-04 09:24 | Outpatient (CLI) | payer OTHER, SELFPAY ==
[2019-11-09 08:23] VITALS: BMI 33.3
--- NOTE | 2020-01-04 09:40 | MRI_ITS ---
STUDY: MRI CERVICAL SPINE WITH AND WITHOUT CONTRAST REASON FOR EXAM: Female, 29 years old. CHIARI, SPINA BIFIDA -- numbness, tingling to left face, episodes x 2 years TECHNIQUE: Standardized fat and water weighted pulse sequences were obtained in the sagittal and axial following administration of IV dotarem 18ml. COMPARISON: None FINDINGS: Please see dedicated brain MRI. Cerebellar tonsillar setting approximately 8 mm below the skull base (sagittal image 7 series 2). No syrinx identified. No abnormal cord signal. No abnormal/unexpected contrast enhancement. Normal foramen magnum. Normal craniovertebral junction. Normal anterior atlantoaxial articulation. Normal odontoid process. Cervical straightening. No significant scoliosis. C2-3: Normal endplates. Normal disc height, signal and morphology. Normal central canal and intervertebral neural foramina. C3-4: Normal endplates. Normal disc height, signal and morphology. Normal central canal and intervertebral neural foramina. C4-5: Normal endplates. Normal disc height, signal and morphology. Normal central canal and intervertebral neural foramina. C5-6: Normal endplates. Normal disc height, signal and morphology. Normal central canal and intervertebral neural foramina. C6-7: Normal endplates. Normal disc height, signal and morphology. Normal central canal and intervertebral neural foramina. C7-T1: Normal endplates. Normal disc height, signal and morphology. Normal central canal and intervertebral neural foramina. 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
== END ==
PROVIDERS: PCP Internal Medicine; Referring Provider Psychiatry & Neurology Neurology; Visit Provider Psychiatry & Neurology Neurology
DX: Q07.01 Arnold-Chiari syndrome with spina bifida (principal)
CPT/HCPCS: 72156

== ENCOUNTER → 2020-03-06 10:15 | Outpatient (CLI) | payer OTHER, SELFPAY ==
[2019-11-09 08:23] VITALS: BMI 33.3
--- NOTE | 2020-03-06 10:28 | MRI_ITS ---
STUDY: MRI BRAIN WITH AND WITHOUT CONTRAST REASON FOR EXAM: Female, 29 years old. chiari malformation, NO COMPLAINTS, RECHECK LAST SCAN 2017 TECHNIQUE: Standardized multiplanar fat and water weighted pulse sequences were obtained. DOTAREM 18 CC IV was administered for the contrast portion of the examination. COMPARISON: March 06, 2020 FINDINGS: Normal size of the ventricles and extra-axial spaces for the patient''s age. Normal white matter tracts of the supratentorial brain. Normal bilateral basal ganglia. Normal thalami. There is no extra-axial fluid accumulation. Normal flow voids within the major intracranial circulation suggesting patency by spin echo criteria. Normal venous enhancement. There is no enhancing intra-axial or extra-axial abnormality. Normal sella turcica, pituitary gland, infundibular stalk, optic chiasm and hypothalamus. Normal tectal plate and pineal gland. Normal midbrain, dulce and medulla. There is mild tonsillar ectopia, without distortion of the brainstem. Findings are stable since the prior examination of 2017. Normal basal cisterns. Normal bilateral temporal bones. Normal bilateral internal auditory canals. No demonstrated orbital abnormality, within the constraints of a routine brain study. Normal visualized paranasal sinuses. Normal calvarium and skull base. Normal visualized soft tissue structures. Normal visualized upper cervical spine. MRI/Brain W/WO Contrast IMPRESSION: Stable mild tonsillar ectopia. Electronically Signed: Nicolas Neal MD at 15:57 EDT Tel , Service support ,
--- OUTSIDE RECORDS SUMMARY | 2020-08-05 10:26 | XMS RPT_ITS | CCD ---
:1990 External Reference #:[id number] Author Organization [facility] Care Team Providers Name Role Phone Waldron Unavailable Unavailable Waldron Unavailable Unavailable Allergies Reported Allergen Reaction(s) Severity Date of Onset Location No Known Allergies [facility] Translations: [ No Known Sys tem Repository Allergies] No Known Medication [facility] Allergies Translations: [ Sy stem Repository No Known Medication Allergies] Encounters Date Type Reason Provider Location 08-08-2017 - Ambulatory Oc Chivo Facility:[facility] 08-09-2017 [facility] Payers Payer Name Policy Number Location [address] [facility] [employer] [facility] ([id number]) Summary Purpose Family History No Family History Records Found Advance Directives No Advanced Directives Records Found Additional Source Comments FOR RECORDS PERTAINING TO PATIENTS WHO ARE OR HAVE BEEN ENROLLED IN A CHEMICAL DEPENDENCY/SUBSTANCE ABUSE PROGRAM, SOME INFORMATION MAY BE OMITTED. This clinical summary was aggregated from multiple sources. Caution should be exercised in using it in the provision of clinical care. This summary normalizes information from multiple sources, and as a consequence, information in this document may materially changethe coding, format and clinical context of patient data. In addition, data may be omittedin some cases. CLINICAL DECISIONS SHOULD BE BASED ON THE PRIMARY CLINICAL RECORDS. [employer] provides no warranty or guarantee of the accuracy or completeness of information in this document. UNRECOGNIZED CONTENT PROVIDED BELOW FOR UNRECOGNIZED SECTION INFORMATION SOURCE DATE CREATED AUTHOR AUTHOR'S NANCY Cassidy 04/18/2018 [facility]
== END ==
PROVIDERS: PCP Internal Medicine; Visit Provider Psychiatry & Neurology Neurology
DX: G93.5 Compression of brain (principal)
CPT/HCPCS: 70553; A9575

== ENCOUNTER → 2020-05-16 08:34 | Outpatient (CLI) | payer OTHER, SELFPAY ==
[2020-05-16 08:06] VITALS: BMI 33.3
--- NOTE | 2020-05-16 08:35 | RAD_ITS ---
STUDY: X-RAY - SACRUM/COCCYX REASON FOR EXAM: Female, 30 years old. CHRONIC COCCYX PAIN WHEN SITTING -- FELL 1.5 YEARS AGO TECHNIQUE: Three view(s) of the sacrum and coccyx were obtained. COMPARISON: None. FINDINGS: Normal bilateral sacroiliac joints. Normal visualized sacral ala and fused sacral bodies. Normal sacrococcygeal junction with a normal angulation. Normal coccygeal segments. IUD noted projecting over the lower coccyx RAD/Sacrum-Coccyx min 2 Views IMPRESSION: Normal x-rays of the sacrum and coccyx. Electronically Signed: Eric Benito MD at 9:49 EDT , Service support ,
== END ==
PROVIDERS: PCP Internal Medicine; Referring Provider Nurse Practitioner Family; Visit Provider Nurse Practitioner Family
DX: M53.3 Sacrococcygeal disorders, not elsewhere classified (principal); G89.29 Other chronic pain
CPT/HCPCS: 72220

== ENCOUNTER → 2020-09-02 10:16 | Outpatient (CLI) | payer OTHER, SELFPAY ==
[2020-05-16 08:06] VITALS: BMI 33.3
[2020-09-02 13:43] LABS: Absolute Lymphocyte Count 1.43 X10^3/uL (0.83-4.51); Absolute Neutrophil Count 3.8 X10^3/uL (2.0-7.7); Basophil# 0.02 X10^3/uL; Basophil% 0.3 % (0-1); Eosinophil# 0.06 X10^3/uL; Hemoglobin 13.1 g/dL (12.0-15.0); Lymphocyte # 1.43 X10^3/ul (4.0); Lymphocyte % 24.7 % (19-41); Mean Corp Hgb Conc 32.8 g/dL (32-36); Mean Corpuscular Hgb 28.3 pg (27.0-32.0); Mean Corpuscular Volume 86.4 fL (81-99); Mean Platelet Vol. 10.9 fl (6.2-12.0); Monocyte# 0.49 X10^3/uL; Monocyte% 8.5 % (0-10); NRBC Flagged by Analyzer 0 % (0-5); Neutrophil # 3.77 X10^3/uL (2.7-7.7); Neutrophil % 65.2 % (47-70); Platelet Count 287 K/mm3 (150-450); RBC Distribution Width CV 13.3 % (11.6-14.6); RBC Distribution Width SD 41.7 fl (35.1-43.9); Red Blood Count 4.63 M/mm3 (4.2-5.4); White Blood Count 5.8 K/mm3 (4.4-11.0)
[2020-09-02 14:44] LABS: HIV - WCH Non-Reactive (Nonreactive); Hepatitis B Surface Antigen Non-Reactive (Nonreactive); Hepatitis C Antibody Non-Reactive (Nonreactive); Rubella IgG Reactive (Nonreactive)
[2020-09-04 01:21] LABS: Prenatal RPR NONREACTIVE (NONREACTIVE)
[2020-09-04 20:07] LABS: Chlamydia By Nucleic Acid AMP Negative (Negative)
[2020-09-04 21:39] LABS: Gonococcus By Nucleic Acid AMP Negative (Negative)
== END ==
PROVIDERS: PCP Internal Medicine; Visit Provider Obstetrics & Gynecology
DX: Z34.81 Encounter for supervision of other normal pregnancy, first trimester (principal)
CPT/HCPCS: 36415; 85025; 86703; 86762; 86803; 87086; 87088; 87340; 87491; 87591

== ENCOUNTER 2020-11-17 10:26 | Outpatient (RCR) | payer OTHER, SELFPAY ==
[2020-05-16 08:06] VITALS: BMI 33.3
== END 2020-11-23 23:59 ==
LOC: LABSPEC 10:26
PROVIDERS: Visit Provider Family Medicine Geriatric Medicine
DX: Z03.818 Encounter for observation for suspected exposure to other biological agents ruled out (principal)
CPT/HCPCS: 87426

== ENCOUNTER → 2020-12-30 14:52 | Outpatient (CLI) | payer OTHER, SELFPAY | PROVIDERS: Visit Provider Obstetrics & Gynecology | DX: Z34.82 Encounter for supervision of other normal pregnancy, second trimester (principal) ==

== ENCOUNTER → 2021-01-27 09:08 | Outpatient (CLI) | payer OTHER, SELFPAY ==
[2021-01-27 10:47] LABS: Hematocrit 35.3 % (37-47); Hemoglobin 11.6 g/dL (12.0-15.0); Mean Corp Hgb Conc 32.9 g/dL (32-36); Mean Corpuscular Hgb 30.1 pg (27.0-32.0); Mean Corpuscular Volume 91.5 fL (81-99); Mean Platelet Vol. 11.1 fl (6.2-12.0); Platelet Count 236 K/mm3 (150-450); RBC Distribution Width CV 13.3 % (11.6-14.6); RBC Distribution Width SD 44.3 fl (35.1-43.9); Red Blood Count 3.86 M/mm3 (4.2-5.4); White Blood Count 6.6 K/mm3 (4.4-11.0)
[2021-01-27 10:49] LABS: Glucose Challenge Gest 1H 50g 117 mg/dL (70-140)
== END ==
PROVIDERS: Visit Provider Obstetrics & Gynecology
DX: Z34.82 Encounter for supervision of other normal pregnancy, second trimester (principal)
CPT/HCPCS: 36415; 82950; 85027

== ENCOUNTER → 2021-03-31 09:54 | Outpatient (CLI) | payer OTHER, SELFPAY | PROVIDERS: Visit Provider Obstetrics & Gynecology | DX: Z36.85 Encounter for antenatal screening for Streptococcus B (principal) | CPT/HCPCS: 87081 ==

== ENCOUNTER 2021-04-20 09:50 | Inpatient (IN) | payer OTHER, SELFPAY ==
[2021-04-20] VITALS (31 sets, daily range): BP systolic 110–139; BP diastolic 54–83; PULSE 75–125; RESP 16; TEMP 36.9–37.2; O2SAT 77–100; BMI 36.3
[2021-04-20] MEDS: Lactated Ringers 500 ML 999 ML IV (10:15)
[2021-04-20 10:33] LABS: Absolute Lymphocyte Count 1.21 X10^3/uL (0.83-4.51); Basophil# 0.03 X10^3/uL; Basophil% 0.3 % (0-1); Eosinophil# 0.04 X10^3/uL; Eosinophils% 0.4 % (0-5); Hematocrit 35.2 % (37-47); Hemoglobin 11.9 g/dL (12.0-15.0); Lymphocyte # 1.21 X10^3/ul (0.83-4.51); Mean Corp Hgb Conc 33.8 g/dL (32-36); Mean Corpuscular Hgb 28.9 pg (27.0-32.0); Mean Corpuscular Volume 85.4 fL (81-99); Mean Platelet Vol. 11.3 fl (6.2-12.0); Monocyte# 0.77 X10^3/uL; Monocyte% 7.6 % (0-10); NRBC Flagged by Analyzer 0 % (0-5); Neutrophil # 7.99 X10^3/uL (2.7-7.7); Neutrophil % 78.9 % (47-70); Platelet Count 204 K/mm3 (150-450); RBC Distribution Width CV 14.7 % (11.6-14.6); RBC Distribution Width SD 46.5 fl (35.1-43.9); Red Blood Count 4.12 M/mm3 (4.2-5.4); White Blood Count 10.1 K/mm3 (4.4-11.0)
[2021-04-20] MEDS: Lactated Ringers 1,000 ML 200 ML IV (10:46)
[2021-04-20] MEDS: fentaNYL-bupivacaine (epidural) 100 ML BAG EPIDURAL (11:25)
--- NOTE | 2021-04-20 12:10 | PCM.HP.OB ---
HPI - General General Date of Admission: 04/20/21 HPI Narrative 30-year-old G3, P1 at 39/3 days, RYAN 04/24/2021 by 7-week ultrasound, admitted for labor and rupture membranes. Reports contractions, spotting, leaking of fluid. Reports movement. Denies headache, vision changes, chest pain, shortness of breath, nausea or vomiting, diarrhea constipation, fevers or chills. uncomplicated. PFSH PFSH Medical History (Updated 04/20/21 @ 12:[address] Sabrina Sierra, DO) Bilateral headaches Environmental allergies Home Medications magnesium 400 mg PO DAILY 04/20/21 [History Last Taken 04/19/21 21:00] pantoprazole [Protonix] 40 mg PO DAILY 04/20/21 [History Last Taken 04/19/21 21:00] [id number] [] 1 tab PO DAILY 04/20/21 [History Last Taken 04/19/21 21:00] Allergy/AdvReac Type Severity Reaction Status Date / Time No Known Allergies Allergy Verified 04/20/21 10:19 Family History Grandfather Heart disease Grandmother Heart disease Surgical History (Updated 04/20/21 @ 12:[address] Sabrina Sierra, ) H/O wisdom tooth extraction History of D&C Social History Smoking Status: Never smoker alcohol intake: never substance use type: does not use what type of physical activity do you participate in: running and weight training frequency: 3-4 times per week History 3 Elective abortions Hx Para 1 Spontaneous abortions 1 Hx # Term Pregnancies 1 Ectopic pregnancies Hx # Pregnancies Multiple births # of living children 1 NST FHR Rate Baby A Baseline: 145 Variability:: Moderate Accelerations:: 15 x 15 Decelerations:: None NST Reactive:: Yes FHR Category:: Category I ROS Constitutional Constitutional: Reports systems reviewed and no addt'l complaints, except as documented Eyes Eyes: Reports systems reviewed and no addt'l complaints, except as documented ENT HEENT: Reports systems reviewed and no addt'l complaints, except as documented Cardiovascular Cardiovascular: Reports systems reviewed and no addt'l complaints, except as documented Respiratory/Chest Respiratory/Chest: Reports systems reviewed and no addt'l complaints, except as documented Gastrointestinal Gastrointestinal: Reports systems reviewed and no addt'l complaints, except as documented Genitourinary Genitourinary: Reports systems reviewed and no addt'l complaints, except as documented Musculoskeletal Musculoskeletal: Reports systems reviewed and no addt'l complaints, except as documented Integumentary Integumentary: Reports systems reviewed and no addt'l complaints, except as documented Neurologic Neurologic: Reports systems reviewed and no addt'l complaints, except as documented Psychiatric Psychiatric: Reports systems reviewed and no addt'l complaints, except as documented Endocrine Endocrinology: Reports systems reviewed and no addt'l complaints, except as documented Hematologic/Lymphatic Hematologic/Lymphatic: Reports systems reviewed and no addt'l complaints, except as documented Allergic/Immunologic Allergic/Immunologic: Reports systems reviewed and no addt'l complaints, except as documented Vital Signs Vital Signs Vital Signs: 04/20/21 10:15 04/20/21 10:48 04/20/21 10:53 Pulse Rate 107 H 104 H Blood Pressure 117/75 129/63 H BP Systolic 117 129 BP Diastolic 75 63 Pulse Ox 97 98 04/20/21 10:54 04/20/21 10:58 04/20/21 10:59 Pulse Rate 90 86 96 Blood Pressure 122/61 H 116/57 L BP Systolic 122 116 BP Diastolic 61 57 Pulse Ox 99 04/20/21 11:04 04/20/21 11:09 04/20/21 11:14 Pulse Rate 96 97 Blood Pressure 132/72 H 134/57 H BP Systolic 132 134 BP Diastolic 72 57 Pulse Ox 99 98 99 04/20/21 11:15 04/20/21 11:19 04/20/21 11:23 Pulse Rate 100 88 88 Blood Pressure 130/65 H 131/60 H BP Systolic 130 131 BP Diastolic 65 60 Pulse Ox 97 90 04/20/21 11:24 04/20/21 11:29 04/20/21 11:32 Pulse Rate 105 H 86 104 H Blood Pressure 117/81 H 127/83 H BP Systolic 117 127 BP Diastolic 81 83 Pulse Ox 100 98 77 04/20/21 11:33 04/20/21 11:40 04/20/21 11:44 Pulse Rate 113 H 110 H 106 H Blood Pressure 136/78 H 111/58 L 126/57 H BP Systolic 136 111 126 BP Diastolic 78 58 57 Pulse Ox 04/20/21 12:05 Pulse Rate 125 H Blood Pressure 139/69 H BP Systolic 139 BP Diastolic 69 Pulse Ox Weight Weight: 105.233 kg Body Mass Index (BMI) 36.3 Physical Exam Const alert, oriented x3 and no apparent distress HEENT normocephalic Head and Scalp: atraumatic Eyes PERRL Neck full ROM Resp normal respiratory effort, no retractions and clear to auscultation bilaterally Cardio regular rate and regular rhythm GI normal to inspection, nondistended, normoactive bowel sounds Inspection: gravid Psych mental status grossly normal Labs Labs Labs: Blood Type A POSITIVE Antibody Screen NEGATIVE Hct 35.2 % (37-47) L Hgb 11.9 g/dL (12.0-15.0) L Rubella IgG Antibody Reactive (Nonreactive) Hep Bs Antigen Non-Reactive (Nonreactive) Neisseria gonorrhoeae DNA (GERBER) Negative (Negative) HIV 1&2 Antibody Non-Reactive (Nonreactive) C.trachomatis DNA (PCR) Negative (Negative) Glucose 1 Hr 50 gm 117 mg/dL (70-140) Rhogam given: No Assessment & Plan (1) Active labor at term: PLAN: 30-year-old G3, P1 at 39/3 weeks admitted for active labor and rupture of membranes. Expectant management, routine orders. GBS negative.
[2021-04-20] MEDS: Oxytocin 30 units/NS 500 ml 30 UNITS/500 ML IV.SOLN 334 UNITS IV (12:19)
[2021-04-20] MEDS: Methylergonovine 0.2 MG/ML Ampul IM (12:23)
--- NOTE | 2021-04-20 12:29 | EX.PCM.OBRPT ---
Vaginal Delivery Findings Description of Procedure: Normal spontaneous vaginal delivery of a viable male , vertex FATEMEH. Head and shoulders delivered with ease. Cord cut and clamped. Baby handed off to patient. Placenta delivered via cord traction and fundal massage. First-degree midline perineal laceration noted and repaired in typical fashion. Periurethral tear noted and repaired in typical fashion. EBL 300 cc Apgars 8/9. Methergine 0.2 mg IM given
[2021-04-20] MEDS: Senna/Docusate Sodium 1 Tablet PO (20:12)
[2021-04-21] MEDS: Ibuprofen 600 MG Tablet PO ×2 (00:28→08:19)
[2021-04-21 00:30] VITALS: BP 107/76; PULSE 76; RESP 18; TEMP 36.6
--- NOTE | 2021-04-21 02:19 | NURSING ---
This RN assuming care of patient and infant at this time. Report received from Ricky Gallegos RN
[2021-04-21 03:54] VITALS: BP 101/64; PULSE 82; RESP 16; TEMP 36.6
[2021-04-21 08:30] VITALS: BP 106/63; PULSE 83; RESP 16; TEMP 36.2; O2SAT 98
--- NOTE | 2021-04-21 08:36 | PCM.PN.OB ---
Subjective Subjective No overnight complaints. Pain well controlled. Objective Data Objective Data Vital Signs: Vital Signs Temp Pulse Resp BP Pulse Ox 97.9 F 82 16 101/64 100 04/21/21 03:54 04/21/21 03:54 04/21/21 03:54 04/21/21 03:54 04/20/21 16:01 Oxygen Delivery Method Room Air Weight: 232 lb Body Mass Index (BMI) 36.3 Intake & Output: Intake and Output for Last 24 Hours 04/19/21 04/20/21 04/21/21 23:59 23:59 23:59 Intake Total 2110 / 2110 Output Total 1000 / 1000 Balance 1110 / 1110 Lab / Micro Data Result Diagrams: 04/20/21 10:15 Labs: Laboratory Results - last 24 hr 04/20/21 04/20/21 10:15 10:15 WBC 10.1 RBC 4.12 L Hgb 11.9 L Hct 35.2 L MCV 85.4 MCH 28.9 MCHC 33.8 RDW Std Deviation 46.5 H RDW Coeff of Nikki 14.7 H Plt Count 204 MPV 11.3 Immature Gran % (Auto) 0.800 Neut % (Auto) 78.9 H Lymph % (Auto) 12.0 L [place] % (Auto) 7.6 Eos % (Auto) 0.4 Baso % (Auto) 0.3 Absolute Neuts (auto) 8.0 H Absolute Lymphs (auto) 1.21 Nucleated RBC % 0 Blood Type A POSITIVE Antibody Screen NEGATIVE Physical Exam Const alert, oriented x3 and no apparent distress HEENT normocephalic Head and Scalp: atraumatic Resp normal respiratory effort, no retractions and no use of accessory muscles Extremity normal to inspection, full ROM and no clubbing, cyanosis or edema Skin no rashes or lesions noted Psych mental status grossly normal, affect normal, speech normal and activity/motor behavior normal Assessment & Plan (1) : PLAN: day 1. Breast-feeding. Pain well controlled. 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
--- NOTE | 2021-04-21 08:37 | PCM.DC ---
Discharge Instructions Diet Discharge Diet: No restrictions Activity Discharge Activity: Return to Normal Activity May resume sexual activity in: 4-6 weeks Weight Bearing Status: Weight bearing as tolerated Dressing / Incision Call your doctor if your incision/area has: Continuous Slow Oozing, Sudden Increased Bleeding and Foul Smelling Discharge Call your doctor if you observe: Fever of 101 or Higher, Shortness of breath and Chest pain Follow Up Care Please Follow Up With: Pal Sierra MD When: 2-week telehealth visit, 4 to 6-week visit Test Results: Test results from this visit will be discussed in further detail at your follow-up appointment, if applicable. Discharge Plan Admission Admit Date/Time: 04/20/21 09:50 Attending Provider: Pal Sierra Discharge Orders/Prescriptions Prescriptions: No Action pantoprazole [Protonix] 40 mg Tablet,Delayed Release (Dr/Ec) 40 mg PO DAILY RF: 0 1 mg Tablet 1 tab PO DAILY RF: 0 magnesium 200 mg Tablet 400 mg PO DAILY RF: 0 Disposition Discharge Orders: Discharge Patient (Routine); Ordered 04/21/21 Ordered By: Dr. Pal Sierra
[2021-04-21 14:40] VITALS: BP 122/73; PULSE 76; RESP 18; TEMP 36.4
== END 2021-04-21 14:25 | disposition home or self-care (01) | DRG 807 ==
PROVIDERS: Student in an Organized Health Care Education/Training Program; Admitting Provider Obstetrics & Gynecology; Referring Provider Obstetrics & Gynecology; Visit Provider Obstetrics & Gynecology
DX: O70.0 First degree perineal laceration during delivery (principal); Z37.0 Single live birth; Z3A.39 39 weeks gestation of pregnancy
CPT/HCPCS: 59025; 59050; 85025; 86850; 86900; 86901; 99218; J7120; G0378

== ENCOUNTER → 2021-06-18 | Outpatient (CLI) | payer OTHER, SELFPAY ==
[2021-06-22 03:07] LABS: Chlamydia By Nucleic Acid AMP Negative (Negative)
[2021-06-22 13:07] LABS: Gonococcus By Nucleic Acid AMP Negative (Negative)
== END | disposition home or self-care (01) ==
PROVIDERS: PCP Internal Medicine; Visit Provider Obstetrics & Gynecology
DX: Z11.3 Encounter for screening for infections with a predominantly sexual mode of transmission (principal)
CPT/HCPCS: 87491; 87591

== ENCOUNTER → 2024-05-28 | Outpatient (CLI) | payer OTHER, SELFPAY ==
[2024-05-28 14:47] LABS: Absolute Lymphocyte Count 1.01 X10^3/uL (0.83-4.51); Absolute Neutrophil Count 3.5 X10^3/uL (2.0-7.7); Basophil# 0.02 X10^3/uL; Basophil% 0.4 % (0-1); Eosinophil# 0.05 X10^3/uL; Hematocrit 36.7 % (37-47); Hemoglobin 12.4 g/dL (12.0-15.0); Lymphocyte # 1.01 X10^3/ul (0.83-4.51); Lymphocyte % 19.8 % (19-41); Mean Corp Hgb Conc 33.8 g/dL (32-36); Mean Corpuscular Hgb 28.5 pg (27.0-32.0); Mean Corpuscular Volume 84.4 fL (81-99); Mean Platelet Vol. 10.4 fl (6.2-12.0); Monocyte# 0.49 X10^3/uL; Monocyte% 9.6 % (0-10); NRBC Flagged by Analyzer 0 % (0-5); Neutrophil # 3.52 X10^3/uL (2.7-7.7); Neutrophil % 68.8 % (47-70); Platelet Count 249 K/mm3 (150-450); RBC Distribution Width CV 14.4 % (11.6-14.6); RBC Distribution Width SD 44.3 fl (35.1-43.9); Red Blood Count 4.35 M/mm3 (4.2-5.4); White Blood Count 5.1 K/mm3 (4.4-11.0)
[2024-05-28 15:57] LABS: HIV - WCH Non-Reactive (Nonreactive); Hepatitis B Surface Antigen Non-Reactive (Nonreactive); Hepatitis C Antibody Non-Reactive (Nonreactive); Rubella IgG Reactive (Nonreactive); Syphilis Antibodies Non-reactive
== END | disposition home or self-care (01) ==
PROVIDERS: PCP Internal Medicine; Referring Provider Advanced Practice Midwife; Visit Provider Advanced Practice Midwife
DX: O09.90 Supervision of high risk pregnancy, unspecified, unspecified trimester (principal); Z3A.00 Weeks of gestation of pregnancy not specified
CPT/HCPCS: 36415; 85025; 86703; 86762; 86780; 86803; 86850; 86900; 86901; 87086; 87088; 87340

== ENCOUNTER → 2024-07-23 | Outpatient (CLI) | payer OTHER, SELFPAY ==
--- NOTE | 2024-07-23 12:14 | US_ITS ---
STUDY: SECOND AND THIRD TRIMESTER OBSTETRICAL ULTRASOUND REASON FOR EXAM: Female, 34 years old anatomy LMP: March 02, 2024. TECHNIQUE: Transabdominal TECHNICAL QUALITY: Adequate. PRIOR ULTRASOUND: None. FINDINGS: There is a single intrauterine fetus. The fetus is in a viable presentation. There is demonstrated cardiac activity with a heart rate of 153 bpm. There is a normal amniotic fluid volume. The largest amniotic fluid pocket measures 4.7 cm. The amniotic fluid index (ROSIE) is within normal limits. The placenta is posterior and low lying but not previa in location. The tip of the placenta is a 1.8 cm from the cervical os. There are Grade 0 placental changes. The cervix measures 5.6 cm in length. The bilateral adnexal regions are normal. BIOMETRY: BPD: 4.47 cm: 19 weeks, 3 days: 15% HC: 17.03 cm: 19 weeks, 4 days: 36% AC: 16.58 cm: 21 weeks, 4 days: 81% FL: 3.12 cm: 19 weeks, 5 days: 18% CI: 78% FL/BPD: 70% FL/HC: 18.3% FL/AC: 18.8% HC/AC: 1.03 age by current US: 19 weeks, 6 days. RYAN by current US: December 11, 2024. Estimated weight: 367 grams, +/- 55 grams, 55.5 %. . . Age by LMP: 20 weeks, 3 days. RYAN by LMP: December 07, 2024. ANATOMY: Gender: Female Cranium: Normal lateral ventricles. Normal choroid plexus. Normal cerebellum. Normal cisterna magna. Normal face, nose and lips. Chest: Normal 4-chamber heart. Abdomen/Pelvis: Normal diaphragm. Normal stomach. Normal abdominal wall. Normal cord insertion. Normal 3 vessel cord. Normal kidneys. Normal bladder. Spine: Normal cervical spine. Normal thoracic spine. Normal lumbar spine. Normal sacrum. Extremities: Normal bilateral upper extremities. Normal bilateral lower extremities. IMPRESSION: Single live intrauterine gestation with a mean gestational age of 19 weeks and 6 days. Electronically Signed: Emanuel Pate MD at 13:48 EDT , STUDY: FIRST TRIMESTER OBSTETRICAL ULTRASOUND REASON FOR EXAM: Female, 34 years old . Cervical length. LMP: March 02, 2024. TECHNIQUE: Transvaginal TECHNICAL QUALITY: Adequate. PRIOR ULTRASOUND: None. FINDINGS: Cervical length measures 5.6 cm. US/OB Anatomy Scan IMPRESSION: Cervical length measures 5.6 cm. Electronically Signed: Emanuel Pate MD at 13:49 EDT ,
== END | disposition home or self-care (01) ==
LOC: US 12:13
PROVIDERS: PCP Internal Medicine; Referring Provider Obstetrics & Gynecology; Visit Provider Obstetrics & Gynecology
DX: O09.90 Supervision of high risk pregnancy, unspecified, unspecified trimester (principal); Z3A.00 Weeks of gestation of pregnancy not specified
CPT/HCPCS: 76805; 76817

== ENCOUNTER → 2024-09-13 | Outpatient (CLI) | payer OTHER, SELFPAY ==
[2024-09-13 11:51] LABS: Absolute Lymphocyte Count 1.01 X10^3/uL (0.83-4.51); Absolute Neutrophil Count 4.8 X10^3/uL (2.0-7.7); Basophil# 0.01 X10^3/uL; Basophil% 0.2 % (0-1); Eosinophil# 0.06 X10^3/uL; Eosinophils% 0.9 % (0-5); Hematocrit 34.6 % (37-47); Hemoglobin 11.8 g/dL (12.0-15.0); Lymphocyte # 1.01 X10^3/ul (0.83-4.51); Lymphocyte % 15.7 % (19-41); Mean Corp Hgb Conc 34.1 g/dL (32-36); Mean Corpuscular Hgb 30.3 pg (27.0-32.0); Mean Corpuscular Volume 88.7 fL (81-99); Mean Platelet Vol. 11.1 fl (6.2-12.0); Monocyte# 0.49 X10^3/uL; Monocyte% 7.6 % (0-10); NRBC Flagged by Analyzer 0 % (0-5); Neutrophil # 4.82 X10^3/uL (2.7-7.7); Platelet Count 251 K/mm3 (150-450); RBC Distribution Width CV 13.9 % (11.6-14.6); White Blood Count 6.4 K/mm3 (4.4-11.0)
[2024-09-13 12:07] LABS: Glucose Challenge Gest 1H 50g 118 mg/dL (70-140)
[2024-09-13 12:38] LABS: HIV - WCH Non-Reactive (Nonreactive); Syphilis Antibodies Non-reactive
== END | disposition home or self-care (01) ==
LOC: BWCLAB 09:30
PROVIDERS: Obstetrics & Gynecology; PCP Internal Medicine; Referring Provider Obstetrics & Gynecology; Visit Provider Obstetrics & Gynecology
DX: O09.90 Supervision of high risk pregnancy, unspecified, unspecified trimester (principal); Z3A.00 Weeks of gestation of pregnancy not specified; Z13.1 Encounter for screening for diabetes mellitus
CPT/HCPCS: 36415; 82950; 85025; 86703; 86780

== ENCOUNTER → 2024-09-13 | Outpatient (CLI) | payer OTHER, SELFPAY ==
--- NOTE | 2024-09-13 12:05 | US_ITS ---
STUDY: SECOND AND THIRD TRIMESTER OBSTETRICAL ULTRASOUND - LIMITED REASON FOR EXAM: Female, 34 years old growth, low lying placenta LMP: 03/02/2024 PRIOR ULTRASOUND: Prior study dated: 07/23/2024 TECHNIQUE: Transabdominal TECHNICAL QUALITY: Adequate. FINDINGS: There is a single intrauterine fetus. The fetus is in a cephalic presentation. There is demonstrated cardiac activity with a heart rate of 145 bpm. There is a normal amniotic fluid volume. The largest amniotic fluid pocket measures 3.9 cm. The amniotic fluid index (ROSIE) is not measured The placenta is posterior in location and is not low lying. The placental tip is approximately 3.6 cm away from the cervix. The cervix measures 4.7 cm in length. BIOMETRY: : 6.7 cm: 26 weeks, 6 days HC: 25 cm: 27 weeks, 1 days AC: 22.7 cm: 27 weeks, 1 days FL: 5 cm: 27 weeks, 0 days Age by LMP: 27 weeks, 6 days. RYAN by LMP: . age by current US: 27 weeks, 0 days. RYAN by current US: 12/13/2024. Estimated weight: 1025 grams, +/- 154 grams, 15 percentile. US/OB Limited With Biometrics IMPRESSION: Single live intrauterine fetus in cephalic presentation with an estimated gestational age of 27 weeks. Electronically Signed: Juan Antonio Ritchie MD at 15:30 EST ,
== END | disposition home or self-care (01) ==
LOC: US 12:04
PROVIDERS: PCP Internal Medicine; Referring Provider Advanced Practice Midwife; Visit Provider Advanced Practice Midwife
DX: O44.40 Low lying placenta NOS or without hemorrhage, unspecified trimester (principal); Z3A.00 Weeks of gestation of pregnancy not specified
CPT/HCPCS: 76816

== ENCOUNTER → 2024-11-09 | Outpatient (CLI) | payer OTHER, SELFPAY ==
--- NOTE | 2024-11-09 15:17 | US_ITS ---
EXAM: US SECOND OR THIRD TRIMESTER , TRANSABDOMINAL CLINICAL INDICATION: large for gestational age TECHNIQUE: Transabdominal obstetrical ultrasound of the maternal pelvis and a second or third trimester with image documentation. COMPARISON: No relevant prior studies available. FINDINGS: FETUS: There is an intrauterine gestation. HEART RATE: heart rate is 138 bpm. PRESENTATION: The fetus is in the cephalic position. PLACENTA: Placenta is posterior. No placenta previa. No abruption. AMNIOTIC FLUID: ROSIE is 10.4 cm. ANATOMY: Intracranial/face anatomy not seen. Spinal anatomy not seen. Abdominal anatomy not seen. Extremities not seen. Four-chamber heart not seen. Umbilical cord not seen. BIOMETRICS GESTATIONAL AGE: Gestational age 36 weeks 0 days. RYAN: RYAN 12/07/2024. EFW: Estimated weight 2955 g. BPD: The biparietal diameter 8.5 cm age 34 weeks 3 days, 17th percentile. HC: Head circumference 31.8 cm age 35 weeks 5 days, 16th percentile. AC: Abdominal circumference 33.3 cm age 37 weeks 1 day, 88th percentile. FL: Femur length 7.0 cm age 36 weeks 0 days, 45th percentile. MATERNAL: UTERUS: Unremarkable. No myometrial mass. CERVIX: Unremarkable as visualized. The cervix is closed. ADNEXA: Unremarkable. No adnexal masses. FREE FLUID: None. US/OB Limited With Biometrics IMPRESSION: Intrauterine gestation with an average ultrasound age of 36 weeks 1 day and ultrasound estimated due date 12/06/2023. heart rate is 138 bpm. Electronically Signed: Jimy Russell MD at 0:11 EST ,
== END | disposition home or self-care (01) ==
LOC: US 15:17
PROVIDERS: PCP Internal Medicine; Referring Provider Obstetrics & Gynecology; Visit Provider Obstetrics & Gynecology
DX: O26.849 Uterine size-date discrepancy, unspecified trimester (principal); Z3A.00 Weeks of gestation of pregnancy not specified
CPT/HCPCS: 76816

== ENCOUNTER → 2024-11-14 | Outpatient (CLI) | payer OTHER, SELFPAY | END | disposition home or self-care (01) | LOC: LABSPEC 10:30 | PROVIDERS: PCP Internal Medicine; Referring Provider Advanced Practice Midwife; Visit Provider Advanced Practice Midwife | DX: O09.90 Supervision of high risk pregnancy, unspecified, unspecified trimester (principal); Z3A.00 Weeks of gestation of pregnancy not specified | CPT/HCPCS: 87081 ==

== ENCOUNTER 2024-12-12 22:43 | Inpatient (IN) | payer OTHER, SELFPAY ==
[2024-12-12 22:25] VITALS: BMI 39.2
[2024-12-12 23:06] LABS: Absolute Lymphocyte Count 1.54 X10^3/uL (0.83-4.51); Absolute Neutrophil Count 4.8 X10^3/uL (2.0-7.7); Basophil# 0.02 X10^3/uL; Basophil% 0.3 % (0-1); Eosinophil# 0.06 X10^3/uL; Eosinophils% 0.8 % (0-5); Hematocrit 35.2 % (37-47); Hemoglobin 11.7 g/dL (12.0-15.0); Lymphocyte # 1.54 X10^3/ul (0.83-4.51); Lymphocyte % 21.2 % (19-41); Mean Corp Hgb Conc 33.2 g/dL (32-36); Mean Corpuscular Hgb 28.1 pg (27.0-32.0); Mean Corpuscular Volume 84.6 fL (81-99); Mean Platelet Vol. 10.4 fl (6.2-12.0); Monocyte# 0.72 X10^3/uL; Monocyte% 9.9 % (0-10); NRBC Flagged by Analyzer 0 % (0-5); Neutrophil # 4.84 X10^3/uL (2.7-7.7); Neutrophil % 66.8 % (47-70); Platelet Count 267 K/mm3 (150-450); RBC Distribution Width CV 14.3 % (11.6-14.6); RBC Distribution Width SD 43.9 fl (35.1-43.9); Red Blood Count 4.16 M/mm3 (4.2-5.4); White Blood Count 7.3 K/mm3 (4.4-11.0)
[2024-12-12] MEDS: Oxytocin 15 Units/NS 250ml 15 UNITS/250 ML IV.SOLN 334 UNITS IV (23:27)
[2024-12-12 23:32] VITALS: BP 138/74; PULSE 100; RESP 15; TEMP 36.3; O2SAT 97
--- NOTE | 2024-12-12 23:35 | HP.PCM.OB_ITS ---
HPI - General General Date of Admission: 12/12/24 HPI Narrative RENATA COLLINS, is a 34 F who presents IAL 5 cm upon presentation Maternal Data Information RYAN Calculator Estimated Delivery Date Method Current WG Current Estimate 12/07/24 Ultrasound #1 40w 5d Other Estimates 12/18/24 LMP (Certain) 39w 1d PFSH PFS Medical History Neck pain Right ankle strain Contact with or suspected exposure to other viral communicable disease Missed Active labor at term Bilateral headaches Environmental allergies Home Medications ?Medication ?Instructions ?Recorded ?Last Taken ?Type multivitamin no.47-iron fum 27 cap PO 05/25/24 Unknown History mg-folate no.1 1 mg-dha 300 mg capsule (PNV-DHA) valacyclovir 500 mg tablet 1,000 mg (2 x 500 mg) PO BI D 3 08/23/24 Unknown Rx (Valtrex) days #12 tabs Allergy/AdvReac Type Severity Reaction Status Date / Time No Known Allergies Allergy Verified 12/10/24 08:11 Family History Grandfather Heart disease Grandmother Heart disease Surgical History H/O wisdom tooth extraction History of D&C Social History adopted: No household members: spouse and children number of children: 2 current occupational status: employed current occupation: RN [employer] pets and animals: Yes pets and animals: dog(s) history of recent travel: Yes ([place]) out of state: Yes out of country: No sexually active: Yes Smoking Status: Never smoker alcohol intake: never substance use type: does not use well-balanced diet: daily or most days caffeine: No eating out: 1-3 times/week during the past year weight has: decreased > 10 lbs what type of physical activity do you participate in: walking and weight training frequency: 3-4 times per week duration: 30-45 minutes/day luly/sabianism: Yazidi seatbelt use: always do you feel safe at home: Yes additional social history: P[employer]- [employer] History 4 Elective abortions Hx Para 2 Spontaneous abortions 1 Hx # Term Pregnancies 1 Ectopic pregnancies Hx # Pregnancies Multiple births # of living children 2 Past Pregnancies Del. Date Name GA/Weeks Outcome Route Bth Weight Gen Labor Lgth Anesthesia Del Locatn Provider FOB 11/02/17 7 spontaneous 10/19/18 Loric 41 live - full term vacuum 8lbs 6oz Female e pidural [facility] Dr.Weeman Garner 04/20/21 Kaleb 39 live - full term 9lbs 2oz Male ep idural [facility] Pal Garner Delivery Date: 11/02/17 Last Updated by: Julisa Magana D&C Visit Details Expected Delivery Route/Plan Labor Preferences- CB/BF classes: [] labor support person: [] labor intervention preferences: [] pain management options preferred: [] cut cord/dad catch: [] : [] PP control planned: [] discussed possible routes of delivery and associated risks: [] special requests: [] Plans Covid status: [] Flu vaccine: [] Tdap vaccine: [] Rhogam: [] LARC form signed: [] Problem list reviewed and updated with the most current plan of care details and appropriate orders placed. Relevant counseling for the gestational age provided. Continue routine care and follow up unless otherwise noted in visit notes/problem list details OB Flowsheet Initial Weight: 205 lb Date -?-?-?-?-?-?-?-?-?-?-?-?- EGA Weight BP Urine Prot -?-?-?-?-?-?-?-?-?-?-?-?- Glucose FHR FuHt Pres Dilation -?-?-?-?-?-?-?-?-?-?-?-?- Effaced St Visit Note 05/28/24 -?-?-?-?-?-?-?-?-?-?-?-?- 12w 3d 205 lb 6 oz (+6 oz) -?-?-?-?-?-?-?-?-?-?-?-?- 171 -?-?-?-?-?-?-?-?-?-?-?-?- KW- CRL 53mm. 12 .3 weeks. declines NIPT KW- CRL 53mm. 12.3 weeks. Di scussed with SM. RYAN changed to 12/07/24 declines NIPT 07/26/24 -?-?-?-?-?-?-?-?-?-?-?-?- 20w 6d 216 lb (+11 lb) 115/76 -?-?-?-?-?-?-?-?-?-?-?-?- 154 21 -?-?-?-?-?-?-?-?-?-?-?-?- KW- no vb/lof/ct x. good fm. KW- no vb/lof/ctx. good fm. low lying placenta on anatomy US.-repeat at 28 weeks. 08/23/24 -?-?-?-?-?-?-?-?-?-?-?-?- 24w 6d 226 lb (+21 lb) 226 lb (+21 lb) 103/70 Negative -?-?-?-?-?-?-?-?-?-?-?-?- Negative 150 25 -?-?-?-?-?-?-?-?-?-?-?-?- SM- no vb lof go od fm no regular ctx 09/13/24 -?-?-?-?-?-?-?-?-?-?-?-?- 27w 6d 230 lb 4 oz (+25 lb 4 oz) 113/79 Negative -?-?-?-?-?-?-?-?-?-?-?-?- Negative 151 32 -?-?-?-?-?-?-?-?-?-?-?-?- JV- GCT done tod ay and pending. also has growth and placenta check today. measuring larger today. no complaints. 09/28/24 -?-?-?-?-?-?-?-?-?-?-?-?- 30w 0d 234 lb 6 oz (+29 lb 6 oz) 113/77 Negative -?-?-?-?-?-?-?-?-?-?-?-?- Negative 135 30 -?-?-?-?-?-?-?-?-?-?-?-?- LC- no vb/ctx/lo f. good fm. LC- no vb/ctx/lof. good fm. growth scan at 15% 10/11/24 -?-?-?-?-?-?-?-?-?-?-?-?- 31w 6d 237 lb (+32 lb) 111/71 Negative -?-?-?-?-?-?-?-?-?-?-?-?- Negative 140 33 -?-?-?-?-?-?-?-?-?-?-?-?- KW- no vb/lof/ct x. good fm. no concerns today 10/26/24 -?-?-?-?-?-?-?-?-?-?-?-?- 34w 0d 242 lb 4 oz (+37 lb 4 oz) 115/78 Negative -?-?-?-?-?-?-?-?-?-?-?-?- Negative 135 34 -?-?-?-?-?-?-?-?-?-?-?-?- KW- no vb/lof/ct x. good fm. 11/07/24 -?-?-?-?-?-?-?--?-?-?-?-?- 35w 5d 243 lb 4 oz (+38 lb 4 oz) 108/77 Negative -?-?-?-?-?-?-?-?-?-?-?-?- Negative 145 39 Cephalic -?-?-?-?-?-?-?--?-?-?-?-?- JV- measuring la rge today. bedside scan to confirm vtx. formal growth scan ordered. gbs next visit. 11/14/24 -?-?-?-?-?-?-?-?-?-?-?-?- 36w 5d 121/84 Negative -?-?-?-?-?-?-?-?-?-?-?-?- Negative 130 36 Cephalic 1 -?-?-?-?-?-?-?-?-?-?-?-?- KW- no vb/lof/ct x. good fm. US reviewed. gbs today 11/21/24 -?-?-?-?-?-?-?-?-?-?-?-?- 37w 5d 248 lb 8 oz (+43 lb 8 oz) 122/81 Trace -?-?-?-?-?-?-?-?-?-?-?-?- Negative 135 38 Cephalic 1 -?-?-?-?-?-?-?-?-?-?-?-?- JV- no lof, vagi nal bleeding, or dec fm. no complaint.s gbs neg 11/29/24 -?-?-?-?-?-?-?-?-?-?-?-?- 38w 6d 251 lb (+46 lb) 119/79 Negative -?-?-?-?-?-?-?-?-?-?-?-?- Negative 135 39 Cephalic 1 .5 -?-?-?-?-?-?-?-?-?-?-?-?- 60 KW-no vb /lof/ctx. good fm 12/05/24 -?-?-?-?-?-?-?-?-?-?-?-?- 39w 5d 250 lb (+45 lb) 111/78 Negative -?-?-?-?-?-?-?-?-?-?-?-?- Negative 140 40 Cephalic 2 -?-?-?-?-?-?-?-?-?-?-?-?- 60 SM- no v b lof good fms no reuglar ctx has sickness respiratory symptoms 12/10/24 -?-?-?-?-?-?-?-?-?-?-?-?- 40w 3d 254 lb 8 oz (+49 lb 8 oz) 120/85 Negative -?-?-?-?-?-?-?-?-?-?-?-?- Negative 115 41 Cephalic 3 -?-?-?-?-?-?-?-?-?-?-?-?- 70 -2 KW- no vb/ lof/ctx. good fm. membrane sweep today. IOL set up for tuesday. NST for possible decel on doppler KW- no vb/lof/ctx. good fm. membrane sweep today. IOL set up for tuesday. NST for possible decel on doppler-reactive NST FHR Rate Baby A Baseline: 140 Variability:: Moderate Accelerations:: 15 x 15 Decelerations:: None NST Reactive:: Yes FHR Category:: Category I Uterine Activity:: q3-5 ROS Constitutional Constitutional: Reports systems reviewed and no addt'l complaints, except as do cumented ENT HEENT: Reports systems reviewed and no addt'l complaints, except as documented Cardiovascular Cardiovascular: Reports systems reviewed and no addt'l complaints, except as documented Respiratory/Chest Respiratory/Chest: Reports systems reviewed and no addt'l complaints, except as documented Gastrointestinal Gastrointestinal: Reports systems reviewed and no addt'l complaints, except as documented and nausea; Denies abdominal pain Genitourinary Genitourinary: Reports systems reviewed and no addt'l complaints, except as documented, contractions Details: present and frequency (regular ) and movement Details: present Musculoskeletal Musculoskeletal: Reports systems reviewed and no addt'l complaints, except as documented Integumentary Integumentary: Reports as per HPI Neurologic Neurologic: Reports systems reviewed and no addt'l complaints, except as documented Endocrine Endocrinology: Reports systems reviewed and no addt'l complaints, except as documented Vital Signs Vital Signs Vital Signs: 12/12/24 23:32 12/12/24 23:32 12/12/24 23:32 Pulse Rate 100 Blood Pressure 138/74 H BP Systolic 138 BP Diastolic 74 Pulse Ox 97 Weight Weight: 250 lb 9.6 oz Body Mass Index (BMI) 39.2 Physical Exam Const alert, oriented x3 and healthy appearing Constitutional Narrative: uncomfortable with contractions HEENT normocephalic and moist oral mucous membranes Head and Scalp: atraumatic Neck full ROM, no lymphadenopathy, supple and thyroid normal General: trachea midline Thyroid: thyroid normal Lymph Lymphatic: no lymphadenopathy noted Chest inspection of chest normal Resp normal respiratory effort Cardio regular rate GI soft to palpation and non-tender GI Narrative: gravid Inspection: gravid external exam normal Bimanual Exam - Vag & Uterus: uterus non-tender Manual OB Exam: estimated gestational size appropriate, presentation cephalic, dilated, effaced and station Extremity normal to inspection General Extremity: Negative for edema Skin no rashes or lesions noted Neuro deep tendon reflexes 2+ bilaterally Motor Exam: strength 5/5 throughout and clonus absent Psych mental status grossly normal Labs Labs Labs: Blood Type A POSITIVE Antibody Screen NEGATIVE Hct 35.2 % (37-47) L Hgb 11.7 g/dL (12.0-15.0) L Pap Smear Negative Obstetrics Ultrasound Syphilis Total Ab Non-reactive Rubella IgG Antibody Reactive (Nonreactive) Hep Bs Antigen Non-Reactive (Nonreactive) Hepatitis C Antibody Non-Reactive (Nonreactive) Hepatitis C Ab (EIA) <0.1 s/co ratio (0.0-0.9) Chlamydia DNA (GERBER) Negative (Negative) N.gonorrhoeae DNA (GERBER) Negative (Negative) HIV 1&2 Antibody Non-Reactive (Nonreactive) Glucose 1 Hr 50 gm 118 mg/dL (70-140) Gest Glucose Tolerance MG/DL Rhogam given: No Assessment & Plan (1) Supervision of high-risk : COMMENT: PRR (GCC w/[facility] neg at NOB), , RYAN 12/18/24, Kaleb Bello Pascual (2) : QUALIFIERS: Weeks of gestation: 40 weeks Qualified Code(s): Z3A.40 - 40 weeks gestation of COMMENT: GBS neg, normal anatomy, declines genetic & carrier testing (3) Uterine size date discrepancy: PLAN: Plan admit IAL
--- NOTE | 2024-12-12 23:38 | OB.VAGDELI_ITS ---
Assessment & Plan (1) Supervision of high-risk : COMMENT: PRR (GCC w/[facility] neg at NOB), , RYAN 12/18/24, Kaleb Bello Pascual (2) : QUALIFIERS: Weeks of gestation: 40 weeks Qualified Code(s): Z3A.40 - 40 weeks gestation of COMMENT: GBS neg, normal anatomy, declines genetic & carrier testing (3) Vaginal delivery: COMMENT: SM IAL Maela 40 Maternal Data Information RYAN Calculator Estimated Delivery Date Method Current WG Current Estimate 12/07/24 Ultrasound #1 40w 5d Other Estimates 12/18/24 LMP (Certain) 39w 1d Vaginal Delivery Maternal Presentation Maternal Presentation: see assessment and plan Vaginal Delivery Information Procedure Performed: Spontaneous Vaginal Delivery Surgeon/Practitioner: Luh Hartmann Date of Procedure: 12/12/24 Pre-Procedure Diagnosis: see assessment and plan Post-Procedure Diagnosis: same Type of anesthesia: None Findings Description of procedure: Patient began pushing and delivered the head in the FATEMEH presentation. The head was delivered atraumatically . The anterior and posterior shoulders delivered without complication followed by the rest of the and the infant was placed on the maternal abdomen. Delayed cord clamping was employed for approximately 60 seconds. Cord was clamped and cut and gentle traction was applied to the cord and the placenta delivered spontaneously immediately following it was noted to be intact with three-vessel cord. The perineum and vagina were inspected and noted to have no laceration. EBL was 200. Patient and tolerated delivery well. Presentation: Vertex Placental Delivery Description: Spontaneous Specimen collected: Yes Description of specimen(s) removed: placenta Financial Consultant utilization management nurse: No Post Vaginal Deli Medications given after delivery: Other (pitocin) Complication Complications: No Multi Select Codes Urinary/Genital Urinary/Genital CPT Codes: 30580 Vaginal Delivery [facility]
--- NOTE | 2024-12-12 23:39 | DCINST_ITS ---
Discharge Instructions Diet Discharge Diet: No restrictions DC O2, CPAP, BIPAP needs Home O2 Discharge instructions: No Dressing / Incision Discharge Activity: Return to Normal Activity, May Not Drive (while taking narcotic pain medications.) and May Shower May resume sexual activity in: 4-6 weeks Dressing / Incision Call your doctor if your incision/area has: Continuous Slow Oozing, Sudden Increased Bleeding, Increased Pain/ Swelling, Increased Redness and Foul Smelling Discharge Follow Up Care Please Follow Up With: Luh Hartmann MD When: Call [phone] to make an appointment with your doctor in 6 weeks. If you had elevated blood pressure or 4th degree laceration, you will need to be seen in 2 weeks. Test Results: Test results from this visit will be discussed in further detail at your follow- up appointment, if applicable. Discharge Plan Admission Admit Date/Time: 12/12/24 22:40 Attending Provider: Luh Hartmann Primary Care Provider: Santy Hill Discharge Orders/Prescriptions Prescriptions: No Action PNV-DHA 27 mg iron-1 mg -300 mg capsule PO valacyclovir [Valtrex] 500 mg tablet 1,000 mg PO BID 3 Days Qty: 12 7RF Rx Instructions: for 3 days Referrals / Follow Up: Santy Hill MD [Primary Care Provider] -
[2024-12-12 23:47] LABS: Syphilis Antibodies Non-reactive
[2024-12-12 23:48] VITALS: BP 113/66; PULSE 96; PULSE 98; RESP 16; TEMP 36.3; O2SAT 97
[2024-12-13] VITALS (17 sets, daily range): BP systolic 98–131; BP diastolic 53–84; PULSE 75–92; RESP 16–20; TEMP 36.3–37.2; O2SAT 98–99
--- NOTE | 2024-12-13 11:08 | PN.OBGYN_ITS ---
Subjective Subjective Patient doing well without complaints. Tolerating PO. Ambulating and voiding without difficulty. feeding well. Denies chest pain, shortness of breath, calf pain/swelling, fevers, chills, lightheadedness. Objective Data Objective Data Vital Signs: Vital Signs Temp Pulse Resp BP Pulse Ox O2 Del Method 97.5 F L 86 16 120/64 99 Room Air 12/13/24 07:56 12/13/24 07:56 12/13/24 07:56 12/13/24 07:56 12/13/24 07:56 12/13/24 07:56 Oxygen Delivery Method Room Air Weight: 250 lb 9.6 oz Body Mass Index (BMI) 39.2 Intake & Output: Intake and Output for Last 24 Hours 12/11/24 12/12/24 12/13/24 23:59 23:59 23:59 Intake Total 250 / 250 Output Total 200 / 200 Balance -200 / -200 250 / 250 Lab / Micro Data 12/12/24 22:55 Labs: Laboratory Results - last 24 hr 12/12/24 22:55: WBC 7.3, RBC 4.16 L, Hgb 11.7 L, Hct 35.2 L, MCV 84.6, MCH 28.1, MCHC 33.2, RDW Std Deviation 43.9, RDW Coeff of Nikki 14.3, Plt Count 267, MPV 10.4, Immature Gran % (Auto) 1.000 H, Neut % (Auto) 66.8, Lymph % (Auto) 21.2, [place] % (Auto) 9.9, Eos % (Auto) 0.8, Baso % (Auto) 0.3, Absolute Neuts (auto) 4.8, Absolute Lymphs (auto) 1.54, Nucleated RBC % 0, Syphilis Total Ab Non- reactive, Blood Type A POSITIVE, Antibody Screen NEGATIVE ROS Constitutional Constitutional: Reports systems reviewed and no addt'l complaints, except as documented Cardiovascular Cardiovascular: Reports systems reviewed and no addt'l complaints, except as documented Respiratory/Chest Respiratory/Chest: Reports systems reviewed and no addt'l complaints, except as documented Gastrointestinal Gastrointestinal: Reports systems reviewed and no addt'l complaints, except as documented Physical Exam Const alert, oriented x3 and no apparent distress HEENT Head and Scalp: atraumatic Resp normal respiratory effort GI soft to palpation and non-tender Bimanual Exam - Vag & Uterus: uterus non-tender Uterus Palpation: uterus fundus firm (below Umbilicus) Assessment & Plan (1) Vaginal delivery: COMMENT: ALEXIS Fontenot 40 PLAN: Plan s/p PPD # 1 1. routine post delivery care 2. breast feeding- support given 3. rh positive 4. rubella immune
[2024-12-14 02:13] VITALS: BP 117/86; PULSE 80; RESP 16; TEMP 36.1; O2SAT 99
--- NOTE | 2024-12-14 07:27 | PN.OBGYN_ITS ---
Subjective Subjective Patient doing well without complaints. Tolerating PO. Ambulating and voiding without difficulty. Feeding well. Denies chest pain, shortness of breath, calf pain/swelling, fevers, chills, lightheadedness. Objective Data Objective Data Vital Signs: Vital Signs Temp Pulse Resp BP Pulse Ox O2 Del Method 97.0 F L 80 16 117/86 H 99 Room Air 12/14/24 02:13 12/14/24 02:13 12/14/24 02:13 12/14/24 02:13 12/14/24 02:13 12/14/24 02:13 Oxygen Delivery Method Room Air Weight: 250 lb 9.6 oz Body Mass Index (BMI) 39.2 Intake & Output: Intake and Output for Last 24 Hours 12/12/24 12/13/24 12/14/24 23:59 23:59 23:59 Intake Total 250 / 250 Output Total 200 / 200 Balance -200 / -200 250 / 250 Lab / Micro Data 12/12/24 22:55 ROS Constitutional Constitutional: Reports systems reviewed and no addt'l complaints, except as documented; Denies anorexia or headache(s) Cardiovascular Cardiovascular: Reports systems reviewed and no addt'l complaints, except as documented; Denies dizziness, dyspnea, nausea or tachypnea Respiratory/Chest Respiratory/Chest: Reports systems reviewed and no addt'l complaints, except as documented; Denies cough, dyspnea, shortness of breath at rest or tachypnea Gastrointestinal Gastrointestinal: Reports systems reviewed and no addt'l complaints, except as documented; Denies abdominal pain, constipation or nausea Genitourinary Genitourinary: Reports systems reviewed and no addt'l complaints, except as documented; Denies burning urination, difficulty urinating, dysuria, urinary frequency or urinary incontinence Musculoskeletal Musculoskeletal: Reports systems reviewed and no addt'l complaints, except as documented Integumentary Integumentary: Reports systems reviewed and no addt'l complaints, except as documented Neurologic Neurologic: Reports systems reviewed and no addt'l complaints, except as documented; Denies abnormal speech, dizziness or headache(s) Psychiatric Psychiatric: Reports systems reviewed and no addt'l complaints, except as documented Endocrine Endocrinology: Reports systems reviewed and no addt'l complaints, except as documented Hematologic/Lymphatic Hematologic/Lymphatic: Reports systems reviewed and no addt'l complaints, except as documented Physical Exam Const alert, oriented x3 and no apparent distress Neck full ROM Resp normal respiratory effort, normal air movement and no retractions Effort and Inspection: able to speak in complete sentences and symmetric chest movement GI soft to palpation Bladder / Kidney Exam: bladder normal to palpation Uterus Palpation: uterus fundus firm Extremity normal to inspection and full ROM Psych mental status grossly normal, thought process normal and cooperative Assessment & Plan (1) Vaginal delivery: COMMENT: SM IAL Maela 40 PLAN: s/p PPD # 2 1. routine post delivery care 2. breast feeding- support given 3. rh positive 4. rubella immune 5. Discharge home (2) Uterine size date discrepancy: (3) Low lying placenta, antepartum: COMMENT: 28 week US-resolved (4) Supervision of high-risk : COMMENT: PRR (GCC w/[facility] neg at NOB), , RYAN 12/18/24, PC Kaleb Miranda P[facility] (5) : QUALIFIERS: Weeks of gestation: 40 weeks Qualified Code(s): Z 3A.40 - 40 weeks gestation of COMMENT: GBS neg, normal anatomy, declines genetic & carrier testing Charges/Coding Multi Select Codes Urinary/Genital Urinary/Genital CPT Codes: No Charge
[2024-12-14 08:37] VITALS: BP 116/73; PULSE 85; RESP 16; TEMP 36.3; O2SAT 98
--- NOTE | 2024-12-18 15:03 | NURSING ---
Here for a visit, follow up phone call questions asked. MOB states she is feeling well, denies any pain or discomfort. States she has minimal bleeding and denies any headache, visual disturbances, or baby blues. Denies any questions or concerns at this time.
== END 2024-12-14 11:00 | disposition home or self-care (01) | DRG 807 ==
LOC: WPOUT 22:44 → WP 12-13 02:26
PROVIDERS: Admitting Provider Obstetrics & Gynecology; PCP Internal Medicine; Referring Provider Obstetrics & Gynecology; Visit Provider Obstetrics & Gynecology
DX: O26.843 Uterine size-date discrepancy, third trimester (principal); Z37.0 Single live birth; Z3A.40 40 weeks gestation of pregnancy
CPT/HCPCS: 59050; 85025; 86780; 86850; 86900; 86901